=== PATIENT | male | born 1960 | race Two or more races ===

== ENCOUNTER 2018-05-20 09:54 | Inpatient (IN) | payer SELFPAY ==
[~2018-05-20] VITALS: Ht 167.6 cm; Wt 78.7 kg
[2018-05-20] MEDS ORDERED: ONDANSETRON PF 4 MG/2 ML VIAL. ONE (10:36)
[2018-05-20] MEDS ORDERED: fentaNYL PF VIAL 100 MCG/2 ML VIAL ONE (10:36)
[2018-05-20 10:38] LABS: BASO % 0 % (0-3); EOS % 0 % (0-3); HEMOGLOBIN 14.7 g/dL (13.0-17.5); LYMPH % 15 % (24-48); MEAN CORPUSCULAR HEMOGLOBIN 30 pg (25-35); MEAN CORPUSCULAR HGB CONC 34 g/dL (31-37); MEAN CORPUSCULAR VOLUME 88 fL (79-100); MONO # 2.4 x10^3/uL (0.0-1.1); MONO % 12 % (0-9); NEUT # 14.2 x10^3uL (1.8-7.7); NEUT % 73 % (31-73); PLATELET COUNT 303 x10^3/uL (140-400); RED BLOOD COUNT 4.87 x10^6/uL (4.30-5.70); RED CELL DISTRIBUTION WIDTH 14.6 % (11.5-14.5); WHITE BLOOD COUNT 19.6 x10^3/uL (4.0-11.0)
[2018-05-20 10:45] LABS: CALCIUM 8.7 mg/dL (8.5-10.1); CREATININE 2.7 mg/dL (0.7-1.3); GFR 24.5; POTASSIUM 4.3 mmol/L (3.5-5.1)
[2018-05-20 10:51] LABS: ALBUMIN 2.6 g/dL (3.4-5.0); DIRECT BILIRUBIN 0.2 mg/dL (0.0-0.2); TOTAL BILIRUBIN 0.8 mg/dL (0.2-1.0); TOTAL PROTEIN 8.1 g/dL (6.4-8.2)
--- NOTE | 2018-05-20 11:48 | PHYS DOC ---
Past Medical History Past Medical History: CAD, Diabetes-Type II, Hypertension Past Surgical History: Other Additional Past Surgical Histo: open heart surgery Alcohol Use: None Drug Use: None Adult General Chief Complaint Chief Complaint: DIZZY/LIGHT HEADED HPI HPI Patient is a 58 year old male who presents with c/o headache with nausea and vomiting that started yesterday. Patient rates headache at an 8/10. He describes pain as throbbing.he indicates that he has t been able to keep any food or fluids down. Review of Systems Review of Systems Constitutional: Denies fever or chills [] Eyes: Denies change in visual acuity, redness, or eye pain [] Respiratory: Denies cough or shortness of breath [] Cardiovascular: denies chest pain] GI: c/o nausea and vomiting [] Neurologic: c/o headache [] All other systems were reviewed and found to be within normal limits, except as documented in this note. Current Medications Current Medications Current Medications Medications (Trade) Dose Ordered Sig/Biju Start Time Stop Time Status Last Admin Dose Admin Fentanyl Citrate (Fentanyl 2ml Vial) 100 mcg STK-MED ONCE 05/20/18 10:36 05/20/18 10:37 DC Ondansetron HCl (Zofran) 4 mg STK-MED ONCE 05/20/18 10:36 05/20/18 10:37 DC Allergies Allergies Allergies Coded Allergies Type Severity Reaction Last Updated Verified No Known Drug Allergies 05/20/18 No Physical Exam Physical Exam Constitutional: Well developed, well nourished, no acute distress, non-toxic appearance. [] HENT: Normocephalic, atraumatic, bilateral external ears normal, oropharynx moist, no oral exudates, nose normal. [] Eyes: PERRLA, EOMI, conjunctiva normal, no discharge. [] Neck: Normal range of motion, no tenderness, supple, no stridor. [] Cardiovascular:Heart rate regular rhythm, no murmur [] Lungs & Thorax: Bilateral breath sounds clear to auscultation [] Abdomen: Bowel sounds normal, soft, no tenderness, no masses, no pulsatile masses. [] Skin: Warm, dry, no erythema, no rash. [] Back: No tenderness, no CVA tenderness. [] Extremities: No tenderness, no cyanosis, no clubbing, ROM intact, no edema. [] Neurologic: Alert and oriented X 3, normal motor function, normal sensory function, no focal deficits noted. [] Psychologic: Affect normal, judgement normal, mood normal. [] Current Patient Data Vital Signs Vital Signs Date Time Temp Pulse Resp B/P (MAP) Pulse Ox O2 Delivery O2 Flow Rate FiO2 05/20/18 10:00 99.7 98 14 175/83 (113) 98 Room Air 99.7 Lab Values Laboratory Tests Test 05/20/18 10:16 White Blood Count 19.6 x10^3/uL (4.0-11.0) H Red Blood Count 4.87 x10^6/uL (4.30-5.70) Hemoglobin 14.7 g/dL (13.0-17.5) Hematocrit 43.0 % (39.0-53.0) Mean Corpuscular Volume 88 fL (79-100) Mean Corpuscular Hemoglobin 30 pg (25-35) Mean Corpuscular Hemoglobin Concent 34 g/dL (31-37) Red Cell Distribution Width 14.6 % (11.5-14.5) H Platelet Count 303 x10^3/uL (140-400) Neutrophils (%) (Auto) 73 % (31-73) Lymphocytes (%) (Auto) 15 % (24-48) L Monocytes (%) (Auto) 12 % (0-9) H Eosinophils (%) (Auto) 0 % (0-3) Basophils (%) (Auto) 0 % (0-3) Neutrophils # (Auto) 14.2 x10^3uL (1.8-7.7) H Lymphocytes # (Auto) 3.0 x10^3/uL (1.0-4.8) Monocytes # (Auto) 2.4 x10^3/uL (0.0-1.1) H Eosinophils # (Auto) 0.0 x10^3/uL (0.0-0.7) Basophils # (Auto) 0.0 x10^3/uL (0.0-0.2) Segmented Neutrophils % 82 % (35-66) H Lymphocytes % 11 % (24-48) L Monocytes % 7 % (0-10) Platelet Estimate Adequate (ADEQUATE) Anisocytosis Slight Sodium Level 136 mmol/L (136-145) Potassium Level 4.3 mmol/L (3.5-5.1) Chloride Level 102 mmol/L (98-107) Carbon Dioxide Level 23 mmol/L (21-32) Anion Gap 11 (6-14) Blood Urea Nitrogen 39 mg/dL (8-26) H Creatinine 2.7 mg/dL (0.7-1.3) H Estimated GFR (Cockcroft-Gault) 24.5 Glucose Level 130 mg/dL (70-99) H Calcium Level 8.7 mg/dL (8.5-10.1) Total Bilirubin 0.8 mg/dL (0.2-1.0) Direct Bilirubin 0.2 mg/dL (0.0-0.2) Aspartate Amino Transferase (AST) 24 U/L (15-37) Alanine Aminotransferase (ALT) 19 U/L (16-63) Alkaline Phosphatase 92 U/L (46-116) Total Protein 8.1 g/dL (6.4-8.2) Albumin 2.6 g/dL (3.4-5.0) L Laboratory Tests 05/20/18 10:16 Laboratory Tests 05/20/18 10:16 EKG EKG [] Radiology/Procedures Radiology/Procedures [] Impressions: CT head demonstrates no acute process. Course & Med Decision Making Course & Med Decision Making Pertinent Labs and Imaging studies reviewed. (See chart for details) [] Dragon Disclaimer Dragon Disclaimer This electronic medical record was generated, in whole or in part, using a voice recognition dictation system. Departure Departure Impression: Primary Impression: Acute renal failure Additional Impression: Migraine Disposition: 09 ADMITTED INPATIENT Admitting Physician: Roberth Luna Condition: IMPROVED Referrals: UNKNOWN PCP NAME (PCP) Problem Qualifiers Primary Impression: Acute renal failure Acute renal failure type: unspecified Qualified Codes: N17.9 - Acute kidney failure, unspecified Additional Impression: Migraine Migraine type: unspecified Status migrainosus presence: without status migrainosus Intractability: not intractable Qualified Codes: G43.909 - Migraine, unspecified, not intractable, without status migrainosus COLT GERARDO Jr. DO May 20, 2018 11:48
[2018-05-20 11:55] LABS: % LYMPHS 11 % (24-48); % MONOS 7 % (0-10); % SEGS 82 % (35-66); ANISOCYTOSIS SLIGHT; PLT ESTIMATE ADEQUATE (ADEQUATE)
[2018-05-20] MEDS ORDERED: SUMAtriptan SUCC 6 MG/0.5 ML VIAL. SQ ONE (13:00)
[2018-05-20] MEDS ORDERED: IV NORMAL SALINE 1000ML BAG 1,000 ML IV ONE (13:00)
[2018-05-20] MEDS ORDERED: fentaNYL PF VIAL 100 MCG/2 ML VIAL IV ONE (13:00)
[2018-05-20] MEDS ORDERED: MORPHINE SULFATE 4 MG/ML VIAL. IV PRN (13:00)
[2018-05-20] MEDS ORDERED: ONDANSETRON PF 4 MG/2 ML VIAL. IV PRN (13:00)
--- NOTE | 2018-05-20 13:02 | RAD ---
CT of the head without contrast, 05/20/2018: History: Headache, dizziness The ventricles are within normal limits in size. There is no shift of the midline structures. There is no evidence of acute intracranial hemorrhage or mass effect. There is calcific plaquing of the distal internal carotid and vertebral arteries. IMPRESSION: No acute intracranial abnormality is detected. PQRS Compliance Statement: One or more of the following individualized dose reduction techniques were utilized for this examination: 1. Automated exposure control 2. Adjustment of the mA and/or kV according to patient size 3. Use of iterative reconstruction technique
[2018-05-20] MEDS: IV NORMAL SALINE 1000ML BAG 1,000 ML IV SCH ×3 (14:30→23:10)
[2018-05-20 15:00] VITALS: BP 152/74
[2018-05-20] MEDS ORDERED: LISI-334 PO (15:15)
[2018-05-20] MEDS ORDERED: ASPI-630 PO (15:15)
[2018-05-20] MEDS: fentaNYL PF VIAL 100 MCG/2 ML VIAL IV PRN (17:52)
[2018-05-20] MEDS: METOPROLOL TART IMMED RELEASE 25 MG TABLET. PO SCH (18:30)
--- NOTE | 2018-05-20 18:32 | PDOC1 ---
History and Physical Date of Admission Date of Admission DATE: 05/20/18 TIME: 18:32 Identification/Chief Complaint Chief Complaint cc 58 year old male who presents with c/o headache with nausea and vomiting that started yesterday, rates headache at an 8/10. He describes pain as throbbing, ct head ok in ER also , DIZZY/LIGHT HEADED Past Medical History Past Medical History Past Medical History Past Medical History: CAD, Diabetes-Type II, Hypertension Past Surgical History: Other Additional Past Surgical Histo: open heart surgery Alcohol Use: None Drug Use: None family hx diabetes Pulmonary: No pertinent hx Family History Family History: High Cholestrol Family History: Parent Social History Smoke: No ALCOHOL: occassional Drugs: None Current Problem List Problem List Problems Medical Problems: (1) Acute renal failure Status: Acute (2) Migraine Status: Acute Current Medications Current Medications Current Medications Fentanyl Citrate (Fentanyl 2ml Vial) 100 mcg STK-MED ONCE .ROUTE ; Start at 10:36; Stop 05/20/18 at 10:37; Status DC Ondansetron HCl (Zofran) 4 mg STK-MED ONCE .ROUTE ; Start 05/20/18 at 10:36; Stop 05/20/18 at 10:37; Status DC Sodium Chloride 1,000 ml @ 1,000 mls/hr 1X ONCE IV Last administered on at 13:04; Start 05/20/18 at 13:00; Stop 05/20/18 at 13:59; Status DC Sumatriptan Succinate (Imitrex) 6 mg 1X ONCE SQ Last administered on at 13:10; Start 05/20/18 at 13:00; Stop 05/20/18 at 13:01; Status DC Fentanyl Citrate (Fentanyl 2ml Vial) 50 mcg 1X ONCE IV Last administered on at 13:08; Start 05/20/18 at 13:00; Stop 05/20/18 at 13:01; Status DC Ondansetron HCl (Zofran) 4 mg PRN Q8HRS PRN IV NAUSEA/VOMITING; Start 05/20/18 at 13:00; Stop 05/21/18 at 12:59 Morphine Sulfate (Morphine Sulfate) 4 mg PRN Q2HR PRN IV PAIN; Start 05/20/18 at 13:00; Stop 05/21/18 at 12:59 Sodium Chloride 1,000 ml @ 250 mls/hr Q4H IV Last administered on 05/20/18at 17 :53; Start 05/20/18 at 12:49; Stop 05/21/18 at 12:48 Fentanyl Citrate (Fentanyl 2ml Vial) 50 mcg PRN Q3HRS PRN IV PAIN Last administered on 05/20/18at 17:52; Start 05/20/18 at 17:45 Topiramate (Topamax) 25 mg BID PO ; Start 05/20/18 at 21:00 Metoprolol Tartrate (Lopressor) 25 mg DAILY PO Last administered on 05/20/18at 18:30; Start 05/20/18 at 19:00 Active Scripts Active Reported Aspirin 81 Mg Tab.chew 1 Tab PO DAILY Lisinopril 20 Mg Tablet 20 Mg PO DAILY Allergies Allergies: Coded Allergies: No Known Drug Allergies (Unverified , 05/20/18) ROS Review of System Review of Systems Review of Systems Constitutional: Denies fever or chills [] Eyes: Denies change in visual acuity, redness, or eye pain [] Respiratory: Denies cough or shortness of breath [] Cardiovascular: denies chest pain] GI: c/o nausea and vomiting [] Neurologic: c/o headache [] 14 PT systems were reviewed and found to be within normal limits, except as documented . Physical Exam Physical Exam Physical Exam Physical Exam Constitutional: Well developed, well nourished, no acute distress, non-toxic appearance. [] HENT: Normocephalic, atraumatic, bilateral external ears normal, oropharynx moist, no oral exudates, nose normal. [] Eyes: PERRLA, EOMI, conjunctiva normal, no discharge. [] Neck: Normal range of motion, no tenderness, supple, no stridor. [] Cardiovascular:Heart rate regular rhythm, no murmur [] Lungs & Thorax: Bilateral breath sounds clear to auscultation [] Abdomen: Bowel sounds normal, soft, no tenderness, no masses, no pulsatile masses. [] Skin: Warm, dry, no erythema, no rash. [] Back: No tenderness, no CVA tenderness. [] Extremities: No tenderness, no cyanosis, no clubbing, ROM intact, no edema. [] Neurologic: Alert and oriented X 3, normal motor function, normal sensory function, no focal deficits noted. [] Psychologic: Affect normal, judgement normal, mood normal. [] General: Alert, Oriented X3, Cooperative Breasts: Not examined Neuro: Normal speech, Cranial nerves 3-12 NL Psych/Mental Status: Mental status NL, Mood NL Vitals Vitals Vital Signs Date Time Temp Pulse Resp B/P (MAP) Pulse Ox O2 Delivery O2 Flow Rate FiO2 05/20/18 18:30 88 152/74 05/20/18 17:52 Room Air 05/20/18 15:00 98.4 17 98 98.4 Labs Labs Laboratory Tests Test 05/20/18 10:16 05/20/18 16:23 White Blood Count 19.6 x10^3/uL (4.0-11.0) Red Blood Count 4.87 x10^6/uL (4.30-5.70) Hemoglobin 14.7 g/dL (13.0-17.5) Hematocrit 43.0 % (39.0-53.0) Mean Corpuscular Volume 88 fL (79-100) Mean Corpuscular Hemoglobin 30 pg (25-35) Mean Corpuscular Hemoglobin Concent 34 g/dL (31-37) Red Cell Distribution Width 14.6 % (11.5-14.5) Platelet Count 303 x10^3/uL (140-400) Neutrophils (%) (Auto) 73 % (31-73) Lymphocytes (%) (Auto) 15 % (24-48) Monocytes (%) (Auto) 12 % (0-9) Eosinophils (%) (Auto) 0 % (0-3) Basophils (%) (Auto) 0 % (0-3) Neutrophils # (Auto) 14.2 x10^3uL (1.8-7.7) Lymphocytes # (Auto) 3.0 x10^3/uL (1.0-4.8) Monocytes # (Auto) 2.4 x10^3/uL (0.0-1.1) Eosinophils # (Auto) 0.0 x10^3/uL (0.0-0.7) Basophils # (Auto) 0.0 x10^3/uL (0.0-0.2) Segmented Neutrophils % 82 % (35-66) Lymphocytes % 11 % (24-48) Monocytes % 7 % (0-10) Platelet Estimate Adequate (ADEQUATE) Anisocytosis Slight Sodium Level 136 mmol/L (136-145) Potassium Level 4.3 mmol/L (3.5-5.1) Chloride Level 102 mmol/L (98-107) Carbon Dioxide Level 23 mmol/L (21-32) Anion Gap 11 (6-14) Blood Urea Nitrogen 39 mg/dL (8-26) Creatinine 2.7 mg/dL (0.7-1.3) Estimated GFR (Cockcroft-Gault) 24.5 Glucose Level 130 mg/dL (70-99) Calcium Level 8.7 mg/dL (8.5-10.1) Total Bilirubin 0.8 mg/dL (0.2-1.0) Direct Bilirubin 0.2 mg/dL (0.0-0.2) Aspartate Amino Transf (AST/SGOT) 24 U/L (15-37) Alanine Aminotransferase (ALT/SGPT) 19 U/L (16-63) Alkaline Phosphatase 92 U/L (46-116) Total Protein 8.1 g/dL (6.4-8.2) Albumin 2.6 g/dL (3.4-5.0) Glucose (Fingerstick) 117 mg/dL (70-99) Laboratory Tests Test 05/20/18 10:16 05/20/18 16:23 White Blood Count 19.6 x10^3/uL (4.0-11.0) Red Blood Count 4.87 x10^6/uL (4.30-5.70) Hemoglobin 14.7 g/dL (13.0-17.5) Hematocrit 43.0 % (39.0-53.0) Mean Corpuscular Volume 88 fL (79-100) Mean Corpuscular Hemoglobin 30 pg (25-35) Mean Corpuscular Hemoglobin Concent 34 g/dL (31-37) Red Cell Distribution Width 14.6 % (11.5-14.5) Platelet Count 303 x10^3/uL (140-400) Neutrophils (%) (Auto) 73 % (31-73) Lymphocytes (%) (Auto) 15 % (24-48) Monocytes (%) (Auto) 12 % (0-9) Eosinophils (%) (Auto) 0 % (0-3) Basophils (%) (Auto) 0 % (0-3) Neutrophils # (Auto) 14.2 x10^3uL (1.8-7.7) Lymphocytes # (Auto) 3.0 x10^3/uL (1.0-4.8) Monocytes # (Auto) 2.4 x10^3/uL (0.0-1.1) Eosinophils # (Auto) 0.0 x10^3/uL (0.0-0.7) Basophils # (Auto) 0.0 x10^3/uL (0.0-0.2) Segmented Neutrophils % 82 % (35-66) Lymphocytes % 11 % (24-48) Monocytes % 7 % (0-10) Platelet Estimate Adequate (ADEQUATE) Anisocytosis Slight Sodium Level 136 mmol/L (136-145) Potassium Level 4.3 mmol/L (3.5-5.1) Chloride Level 102 mmol/L (98-107) Carbon Dioxide Level 23 mmol/L (21-32) Anion Gap 11 (6-14) Blood Urea Nitrogen 39 mg/dL (8-26) Creatinine 2.7 mg/dL (0.7-1.3) Estimated GFR (Cockcroft-Gault) 24.5 Glucose Level 130 mg/dL (70-99) Calcium Level 8.7 mg/dL (8.5-10.1) Total Bilirubin 0.8 mg/dL (0.2-1.0) Direct Bilirubin 0.2 mg/dL (0.0-0.2) Aspartate Amino Transf (AST/SGOT) 24 U/L (15-37) Alanine Aminotransferase (ALT/SGPT) 19 U/L (16-63) Alkaline Phosphatase 92 U/L (46-116) Total Protein 8.1 g/dL (6.4-8.2) Albumin 2.6 g/dL (3.4-5.0) Glucose (Fingerstick) 117 mg/dL (70-99) Images Images PROCEDURE: CT HEAD WO CONTRAST CT of the head without contrast, 05/20/2018: History: Headache, dizziness The ventricles are within normal limits in size. There is no shift of the midline structures. There is no evidence of acute intracranial hemorrhage or mass effect. There is calcific plaquing of the distal internal carotid and vertebral arteries. IMPRESSION: No acute intracranial abnormality is detected. VTE Prophylaxis Ordered VTE Prophylaxis Devices: Yes VTE Pharmacological Prophylaxi: Yes Assessment/Plan Assessment/Plan Impression: Acute renal failure: Migraine, intractable pain Intractable nausea and vomiting acute intravascular volume depletion PLAN IV FLUID SUPPORT RENAL CONSULT PAIN CONTROL, iv iv zofran prn q 4 hrs lovenox 30 mg sq q 4 hrs frequent labs DAWSON CISNEROS MD May 20, 2018 18:32
[2018-05-20 19:00] VITALS: BP 165/73
[2018-05-20 19:03] LABS: PROTHROMBIN TIME PATIENT 13.8 SEC (11.7-14.0)
[2018-05-20] MEDS: ASPIRIN CHEWABLE 81 MG TABLET. PO SCH (19:33)
[2018-05-20] MEDS: TOPIRAMATE 25 MG TABLET. PO SCH (19:33)
[2018-05-20] MEDS: ACETAMINOPHEN 325 MG TABLET. PO PRN (19:33)
[2018-05-20 20:11] LABS: BILIRUBIN,URINE NEGATIVE (NEG); CLARITY,URINE CLEAR; COLOR,URINE YELLOW; NITRITE,URINE NEGATIVE (NEG); PH,URINE 6.5; PROTEIN,URINE >=300 mg/dL (NEG-TRACE)
[2018-05-20 20:17] LABS: BARBITURATES NEG (NEG); BENZODIAZEPINES NEG (NEG); CANNABINOIDS NEG (NEG); COCAINE NEG (NEG); METHADONE NEG (NEG); OPIATES NEG (NEG); PHENCYCLIDINE NEG (NEG)
[2018-05-20 20:20] LABS: AMPHETAMINE/METHAMPHETAMINE NEG (NEG)
--- NOTE | 2018-05-20 20:22 | PDOC2 ---
NEUROLOGY CONSULT Date of Admission Date of Admission DATE: 05/20/18 TIME: 20:08 Reason for Consult Reason for Consult: IMPRESSION: Fever. Chills. Headaches. Dizziness. Leukocytosis. Renal failure or AGNIESZKA. Nausea. Vomiting. DM. CAD. HTN. Meningitis? RECOMMENDATIONS/PLAN: Please consult ID, MARY. Brain MRI w/o contrast, no contrast due to renal failure. Keep good hydration. LP after MRI is considered. Lab: see orders, including blood cultures. CXR PA/LAT. Treat medical diseases. HISTORY OF THE PRESENT ILLNESS: 58-y-old [place] origin male patient with Hx of CAD and HTN developed symptoms of fever, chills, headaches, nausea, vomiting for 2 days before coming to the ER of [facility]. His HCT was unremarkable. His WBC is 19.6. Past Medical History CAD, Diabetes-Type II, Hypertension Past Surgical History: "Open heart surgery" Family History HLD ALLERGY: Unknown MEDICATIONS: Refer to MAR SOCIAL HISTORY: Lives at home. Denies smoking, drinking, and illicit drug use. REVIEW OF SYSTEMS: Constitutional: Over weight. Head: No traumatic brain or head injury. Skin: No edema, or rash. Ear: No infection. Eyes: No vision loss or color blindness. Nose: No bleeding or purulent discharges. Hearing: No hearing decrease. Neck: No injury. Cardiac: HTN. Pulmonary: No COPD. GI: No GI ulcer, GI bleeding. Urinary/genital: No dysuria, incontinence, urinary retention. Endocrinologic: Diabetes Mellitus. Skeletomuscular: No muscular atrophy, deformity. Neurological: see HP. Psychiatric: Denies drug use/abuse. Otherwise, not [id number] review of systems. PHYSICAL EXAMINATION: General appearance is in acute distress. HEENT: Normocephalic and nontraumatic. Eyes, nose, ears, and throat are unremarkable. Neck is supple. No lymphadenopathy. No bruits are heard over the carotid artery. No crepitus. Cardiovascular: S1, S2, regular rate and rhythm. Pulmonary: Clear to auscultation bilaterally. Abdomen: Bowel sounds are positive. Abdomen is soft, nontender, and nondistended. Extremities: No rash, lesions, or edema. No restriction of range of motion NEUROLOGICAL EXAMINATION: Drowsiness. Oriented to time, place and person. PERRL. EOMI. CN: no focal findings. Muscle tone: within normal. Muscle strength: 5 DTR: 2 Plantar reflex: Flexor response bilaterally Gait: not examined in bed. Sensory exam: no abnormal findings. No cerebellar signs elicited. F-T-N test accurate. Current Medications Current Medications Current Medications Fentanyl Citrate (Fentanyl 2ml Vial) 100 mcg STK-MED ONCE .ROUTE ; Start at 10:36; Stop 05/20/18 at 10:37; Status DC Ondansetron HCl (Zofran) 4 mg STK-MED ONCE .ROUTE ; Start 05/20/18 at 10:36; Stop 05/20/18 at 10:37; Status DC Sodium Chloride 1,000 ml @ 1,000 mls/hr 1X ONCE IV Last administered on at 13:04; Start 05/20/18 at 13:00; Stop 05/20/18 at 13:59; Status DC Sumatriptan Succinate (Imitrex) 6 mg 1X ONCE SQ Last administered on at 13:10; Start 05/20/18 at 13:00; Stop 05/20/18 at 13:01; Status DC Fentanyl Citrate (Fentanyl 2ml Vial) 50 mcg 1X ONCE IV Last administered on at 13:08; Start 05/20/18 at 13:00; Stop 05/20/18 at 13:01; Status DC Ondansetron HCl (Zofran) 4 mg PRN Q8HRS PRN IV NAUSEA/VOMITING; Start 05/20/18 at 13:00; Stop 05/21/18 at 12:59 Morphine Sulfate (Morphine Sulfate) 4 mg PRN Q2HR PRN IV PAIN; Start 05/20/18 at 13:00; Stop 05/21/18 at 12:59 Sodium Chloride 1,000 ml @ 250 mls/hr Q4H IV Last administered on 05/20/18at 17 :53; Start 05/20/18 at 12:49; Stop 05/21/18 at 12:48 Fentanyl Citrate (Fentanyl 2ml Vial) 50 mcg PRN Q3HRS PRN IV PAIN Last administered on 05/20/18at 17:52; Start 05/20/18 at 17:45 Topiramate (Topamax) 25 mg BID PO Last administered on 05/20/18at 19:33; Start 05/20/18 at 21:00 Metoprolol Tartrate (Lopressor) 25 mg DAILY PO Last administered on 05/20/18at 18:30; Start 05/20/18 at 19:00 Aspirin (Children'S Aspirin) 81 mg DAILY PO Last administered on 05/20/18at 19: 33; Start 05/20/18 at 19:00 Acetaminophen (Tylenol) 650 mg PRN Q6HRS PRN PO MILD PAIN / TEMP Last administered on 05/20/18at 19:33; Start 05/20/18 at 19:30 Active Scripts Active Reported Aspirin 81 Mg Tab.chew 1 Tab PO DAILY Lisinopril 20 Mg Tablet 20 Mg PO DAILY Allergies Allergies: Allergies Coded Allergies Type Severity Reaction Last Updated Verified No Known Drug Allergies 05/20/18 No ROS Review of System The patient denies any associated fevers, chills, headache, ear pain, rhinorrhea , sore throat, stiff neck, productive cough, chest pain, shortness of breath, back or flank pain, abdominal pain, nausea, vomiting, diarrhea, constipation, dysuria, rash, numbness, weakness, tingling, incontinence, difficulty ambulating, or diaphoresis. Physical Exam Physical Exam General: Well developed, well nourished, no acute distress, well appearing HEENT: Pupils equally round and reactive to light, EOMI, no discharge, normal conjunctiva Neck: Supple, no nuchal rigidity, no JVD, trachea midline, no tenderness Cardiac: RRR, no murmurs, no gallops, no rubs Chest/Lungs: CTAB, no wheeze, no rhonchi, no crackles Abdomen: soft, non-distended, no guarding, no peritoneal signs, non-tender Back: No tenderness Extremities: no edema, pulses intact, non-tender,capillary refill <3 sec bilateral upper and lower extremities, Neuro: Alert and oriented x 4, no focal deficits, normal speech Vitals Vitals: Vital Signs Date Time Temp Pulse Resp B/P (MAP) Pulse Ox O2 Delivery O2 Flow Rate FiO2 05/20/18 19:00 101.5 84 20 165/73 (103) 99 Room Air 101.5 Labs Labs Laboratory Tests Test 05/20/18 10:16 05/20/18 16:23 05/20/18 18:45 White Blood Count 19.6 x10^3/uL (4.0-11.0) Red Blood Count 4.87 x10^6/uL (4.30-5.70) Hemoglobin 14.7 g/dL (13.0-17.5) Hematocrit 43.0 % (39.0-53.0) Mean Corpuscular Volume 88 fL (79-100) Mean Corpuscular Hemoglobin 30 pg (25-35) Mean Corpuscular Hemoglobin Concent 34 g/dL (31-37) Red Cell Distribution Width 14.6 % (11.5-14.5) Platelet Count 303 x10^3/uL (140-400) Neutrophils (%) (Auto) 73 % (31-73) Lymphocytes (%) (Auto) 15 % (24-48) Monocytes (%) (Auto) 12 % (0-9) Eosinophils (%) (Auto) 0 % (0-3) Basophils (%) (Auto) 0 % (0-3) Neutrophils # (Auto) 14.2 x10^3uL (1.8-7.7) Lymphocytes # (Auto) 3.0 x10^3/uL (1.0-4.8) Monocytes # (Auto) 2.4 x10^3/uL (0.0-1.1) Eosinophils # (Auto) 0.0 x10^3/uL (0.0-0.7) Basophils # (Auto) 0.0 x10^3/uL (0.0-0.2) Segmented Neutrophils % 82 % (35-66) Lymphocytes % 11 % (24-48) Monocytes % 7 % (0-10) Platelet Estimate Adequate (ADEQUATE) Anisocytosis Slight Sodium Level 136 mmol/L (136-145) Potassium Level 4.3 mmol/L (3.5-5.1) Chloride Level 102 mmol/L (98-107) Carbon Dioxide Level 23 mmol/L (21-32) Anion Gap 11 (6-14) Blood Urea Nitrogen 39 mg/dL (8-26) Creatinine 2.7 mg/dL (0.7-1.3) Estimated GFR (Cockcroft-Gault) 24.5 Glucose Level 130 mg/dL (70-99) Calcium Level 8.7 mg/dL (8.5-10.1) Total Bilirubin 0.8 mg/dL (0.2-1.0) Direct Bilirubin 0.2 mg/dL (0.0-0.2) Aspartate Amino Transf (AST/SGOT) 24 U/L (15-37) Alanine Aminotransferase (ALT/SGPT) 19 U/L (16-63) Alkaline Phosphatase 92 U/L (46-116) Total Protein 8.1 g/dL (6.4-8.2) Albumin 2.6 g/dL (3.4-5.0) Glucose (Fingerstick) 117 mg/dL (70-99) Prothrombin Time 13.8 SEC (11.7-14.0) Prothromb Time International Ratio 1.1 (0.8-1.1) Laboratory Tests Test 05/20/18 10:16 05/20/18 16:23 05/20/18 18:45 White Blood Count 19.6 x10^3/uL (4.0-11.0) Red Blood Count 4.87 x10^6/uL (4.30-5.70) Hemoglobin 14.7 g/dL (13.0-17.5) Hematocrit 43.0 % (39.0-53.0) Mean Corpuscular Volume 88 fL (79-100) Mean Corpuscular Hemoglobin 30 pg (25-35) Mean Corpuscular Hemoglobin Concent 34 g/dL (31-37) Red Cell Distribution Width 14.6 % (11.5-14.5) Platelet Count 303 x10^3/uL (140-400) Neutrophils (%) (Auto) 73 % (31-73) Lymphocytes (%) (Auto) 15 % (24-48) Monocytes (%) (Auto) 12 % (0-9) Eosinophils (%) (Auto) 0 % (0-3) Basophils (%) (Auto) 0 % (0-3) Neutrophils # (Auto) 14.2 x10^3uL (1.8-7.7) Lymphocytes # (Auto) 3.0 x10^3/uL (1.0-4.8) Monocytes # (Auto) 2.4 x10^3/uL (0.0-1.1) Eosinophils # (Auto) 0.0 x10^3/uL (0.0-0.7) Basophils # (Auto) 0.0 x10^3/uL (0.0-0.2) Segmented Neutrophils % 82 % (35-66) Lymphocytes % 11 % (24-48) Monocytes % 7 % (0-10) Platelet Estimate Adequate (ADEQUATE) Anisocytosis Slight Sodium Level 136 mmol/L (136-145) Potassium Level 4.3 mmol/L (3.5-5.1) Chloride Level 102 mmol/L (98-107) Carbon Dioxide Level 23 mmol/L (21-32) Anion Gap 11 (6-14) Blood Urea Nitrogen 39 mg/dL (8-26) Creatinine 2.7 mg/dL (0.7-1.3) Estimated GFR (Cockcroft-Gault) 24.5 Glucose Level 130 mg/dL (70-99) Calcium Level 8.7 mg/dL (8.5-10.1) Total Bilirubin 0.8 mg/dL (0.2-1.0) Direct Bilirubin 0.2 mg/dL (0.0-0.2) Aspartate Amino Transf (AST/SGOT) 24 U/L (15-37) Alanine Aminotransferase (ALT/SGPT) 19 U/L (16-63) Alkaline Phosphatase 92 U/L (46-116) Total Protein 8.1 g/dL (6.4-8.2) Albumin 2.6 g/dL (3.4-5.0) Glucose (Fingerstick) 117 mg/dL (70-99) Prothrombin Time 13.8 SEC (11.7-14.0) Prothromb Time International Ratio 1.1 (0.8-1.1) JOHANNA VALENTIN MD May 20, 2018 20:22
[2018-05-20 20:34] LABS: BACTERIA,URINE 0 /HPF (0-FEW); HYALINE CASTS, URINE FEW /HPF; SQUAMOUS EPITHELIAL CELL,UR FEW /LPF
[2018-05-20] MEDS ORDERED: CEFEPIME HCL 1 GM in IV DEXTROSE 5% 50 ML IV SCH (21:00)
[2018-05-20] MEDS: CEFEPIME HCL IV Push 1 GM VIAL. IVP SCH (21:44)
--- NOTE | 2018-05-20 23:01 | RAD ---
PROCEDURE: CHEST PA LATERAL CLINICAL INDICATION: FEVER, CHILLS X1 DAY COMPARISON: None FINDINGS: Status post CABG. No pneumothorax identified. Cardiac and mediastinal contours unremarkable. No pulmonary consolidation or acute airspace disease. No acute osseous abnormalities identified. IMPRESSION: No pulmonary consolidation or acute airspace disease. Electronically signed by: Elpidio Chow DO (05/20/2018 10:58 PM) [facility]
[2018-05-20 23:03] VITALS: BP 119/69
[2018-05-21] MEDS: ACETAMINOPHEN 325 MG TABLET. PO PRN ×2 (02:18→09:07)
[2018-05-21 03:06] VITALS: BP 152/73
[2018-05-21] MEDS: IV NORMAL SALINE 1000ML BAG 1,000 ML IV SCH ×4 (03:24→21:20)
[2018-05-21 07:00] VITALS: BP 147/64
--- NOTE | 2018-05-21 09:06 | RAD ---
MRI Brain without contrast History:NAUSEA, DIZZINESS, HEADACHES Technique: Multiplanar, multisequential noncontrast MR imaging was performed of the brain. Contrast: None Comparison: None Findings: There is some motion degradation. There is no evidence of recent infarct or cytotoxic edema. The ventricles, sulci, and cisterns are within normal limits in size and configuration. There is no significant midline shift, intraaxial mass effect, or focal abnormal extra-axial fluid collection. Allowing for motion, there is no significant signal abnormality including hemosiderin deposition of the brain parenchyma. There is preservation of the major intracranial flow-voids at the skull base. The mastoid air cells are aerated. The cerebellar tonsils are normal in location. There is no significant abnormality of the pineal gland or pituitary gland. There is qxeo-li-wwwwzliv ethmoid air cell and mild bilateral maxillary sinus mucosal thickening. Frontal sinus is not significantly pneumatized. There is preserved marrow signal of the clivus. Impression: 1. Allowing for motion degradation, no significant intracranial abnormality is identified. 2. There is paranasal sinus mucosal thickening as stated. Electronically signed by: Ernesto Paul MD (05/21/2018 9:02 AM) [email or web address]
[2018-05-21] MEDS: ASPIRIN CHEWABLE 81 MG TABLET. PO SCH (09:07)
[2018-05-21] MEDS: TOPIRAMATE 25 MG TABLET. PO SCH ×2 (09:07→21:21)
[2018-05-21] MEDS: METOPROLOL TART IMMED RELEASE 25 MG TABLET. PO SCH (09:07)
[2018-05-21] MEDS: CEFEPIME HCL IV Push 1 GM VIAL. IVP SCH (09:09)
[2018-05-21] MEDS: oxyCODONE/APAP 5/325 1 TAB TABLET PO PRN ×2 (09:36→18:40)
[2018-05-21] MEDS ORDERED: ACETAMINOPHEN 500 MG TABLET PO ONE (10:00)
--- NOTE | 2018-05-21 10:07 | PDOC ---
Infectious Disease Note Vital Sign Vital Signs Vital Signs Date Time Temp Pulse Resp B/P (MAP) Pulse Ox O2 Delivery O2 Flow Rate FiO2 05/21/18 09:36 Room Air 05/21/18 09:07 77 147/64 05/21/18 07:00 102.2 18 99 102.2 Labs Lab Laboratory Tests Test 05/20/18 10:16 05/20/18 16:23 05/20/18 18:45 05/20/18 19:47 White Blood Count 19.6 x10^3/uL (4.0-11.0) Red Blood Count 4.87 x10^6/uL (4.30-5.70) Hemoglobin 14.7 g/dL (13.0-17.5) Hematocrit 43.0 % (39.0-53.0) Mean Corpuscular Volume 88 fL (79-100) Mean Corpuscular Hemoglobin 30 pg (25-35) Mean Corpuscular Hemoglobin Concent 34 g/dL (31-37) Red Cell Distribution Width 14.6 % (11.5-14.5) Platelet Count 303 x10^3/uL (140-400) Neutrophils (%) (Auto) 73 % (31-73) Lymphocytes (%) (Auto) 15 % (24-48) Monocytes (%) (Auto) 12 % (0-9) Eosinophils (%) (Auto) 0 % (0-3) Basophils (%) (Auto) 0 % (0-3) Neutrophils # (Auto) 14.2 x10^3uL (1.8-7.7) Lymphocytes # (Auto) 3.0 x10^3/uL (1.0-4.8) Monocytes # (Auto) 2.4 x10^3/uL (0.0-1.1) Eosinophils # (Auto) 0.0 x10^3/uL (0.0-0.7) Basophils # (Auto) 0.0 x10^3/uL (0.0-0.2) Segmented Neutrophils % 82 % (35-66) Lymphocytes % 11 % (24-48) Monocytes % 7 % (0-10) Platelet Estimate Adequate (ADEQUATE) Anisocytosis Slight Sodium Level 136 mmol/L (136-145) Potassium Level 4.3 mmol/L (3.5-5.1) Chloride Level 102 mmol/L (98-107) Carbon Dioxide Level 23 mmol/L (21-32) Anion Gap 11 (6-14) Blood Urea Nitrogen 39 mg/dL (8-26) Creatinine 2.7 mg/dL (0.7-1.3) Estimated GFR (Cockcroft-Gault) 24.5 Glucose Level 130 mg/dL (70-99) Calcium Level 8.7 mg/dL (8.5-10.1) Total Bilirubin 0.8 mg/dL (0.2-1.0) Direct Bilirubin 0.2 mg/dL (0.0-0.2) Aspartate Amino Transf (AST/SGOT) 24 U/L (15-37) Alanine Aminotransferase (ALT/SGPT) 19 U/L (16-63) Alkaline Phosphatase 92 U/L (46-116) Total Protein 8.1 g/dL (6.4-8.2) Albumin 2.6 g/dL (3.4-5.0) Glucose (Fingerstick) 117 mg/dL (70-99) Erythrocyte Sedimentation Rate 57 (0-15) Prothrombin Time 13.8 SEC (11.7-14.0) Prothromb Time International Ratio 1.1 (0.8-1.1) Urine Collection Type Unknown Urine Color Yellow Urine Clarity Clear Urine pH 6.5 Urine Specific [place] 1.020 Urine Protein >=300 mg/dL (NEG-TRACE) Urine Glucose (UA) 250 mg/dL (NEG) Urine Ketones (Stick) Negative mg/dL (NEG) Urine Blood Small (NEG) Urine Nitrite Negative (NEG) Urine Bilirubin Negative (NEG) Urine Urobilinogen Dipstick 1.0 mg/dL (0.2 mg/dL) Urine Leukocyte Esterase Negative (NEG) Urine RBC 3-5 /HPF (0-2) Urine WBC 1-4 /HPF (0-4) Urine Squamous Epithelial Cells Few /LPF Urine Bacteria 0 /HPF (0-FEW) Urine Hyaline Casts Few /HPF Urine Mucus Slight /LPF Urine Opiates Screen Neg (NEG) Urine Methadone Screen Neg (NEG) Urine Barbiturates Neg (NEG) Urine Phencyclidine Screen Neg (NEG) Urine Amphetamine/Methamphetamine Neg (NEG) Urine Benzodiazepines Screen Neg (NEG) Urine Cocaine Screen Neg (NEG) Urine Cannabinoids Screen Neg (NEG) Urine Ethyl Alcohol Neg (NEG) Test 05/20/18 20:19 05/20/18 21:40 05/21/18 07:13 Glucose (Fingerstick) 120 mg/dL (70-99) 71 mg/dL (70-99) Lactic Acid Level 0.6 mmol/L (0.4-2.0) Objective Assessment Fever Headache Diarrhea DM Plan Plan of Care LP cont cefepime supportive care check culture JIGAR PUCKETT MD May 21, 2018 10:07
[2018-05-21 11:00] VITALS: BP 148/64
[2018-05-21 11:17] LABS: BASO # 0.1 x10^3/uL (0.0-0.2); BASO % 0 % (0-3); EOS % 0 % (0-3); HEMOGLOBIN 11.3 g/dL (13.0-17.5); LYMPH # 2.1 x10^3/uL (1.0-4.8); LYMPH % 10 % (24-48); MEAN CORPUSCULAR HEMOGLOBIN 30 pg (25-35); MEAN CORPUSCULAR HGB CONC 33 g/dL (31-37); MEAN CORPUSCULAR VOLUME 89 fL (79-100); MONO # 2.6 x10^3/uL (0.0-1.1); MONO % 12 % (0-9); NEUT # 16.8 x10^3uL (1.8-7.7); NEUT % 78 % (31-73); PLATELET COUNT 228 x10^3/uL (140-400); RED BLOOD COUNT 3.83 x10^6/uL (4.30-5.70); RED CELL DISTRIBUTION WIDTH 14.5 % (11.5-14.5); WHITE BLOOD COUNT 21.6 x10^3/uL (4.0-11.0)
[2018-05-21 11:34] LABS: ALBUMIN 1.8 g/dL (3.4-5.0); ALBUMIN/GLOBULIN RATIO 0.5 (1.0-1.7); CALCIUM 6.6 mg/dL (8.5-10.1); CREATININE 2.3 mg/dL (0.7-1.3); GFR 29.5; POTASSIUM 4.6 mmol/L (3.5-5.1); TOTAL BILIRUBIN 0.6 mg/dL (0.2-1.0); TOTAL PROTEIN 5.8 g/dL (6.4-8.2)
[2018-05-21] MEDS ORDERED: LIDOCAINE WITH 8.4% SOD BICARB 3 ML DISP.SYRIN. INJ ONE (12:15)
--- NOTE | 2018-05-21 13:25 | PDOC ---
Provider Note Provider Note A fluoro guided LP was performed utilizing a 20 g spinal needle without difficulty. 11 cc of clear CSF was removed and sent to the lab. The patient tolerated the procedure well and left the radiology department in stable condition. KACEY PARTIDA MD May 21, 2018 13:25
--- NOTE | 2018-05-21 13:42 | RAD ---
Fluoroscopically guided lumbar puncture, 05/21/2018: History: Headache, fever Under local anesthesia, aseptic conditions and fluoroscopic guidance a lumbar puncture was performed at the L2-3 level utilizing a 20-gauge spinal needle. Good clear CSF flow was obtained. A total of 11 cc of CSF was removed and sent to the lab for appropriate studies. The spinal needle was then removed and hemostasis obtained. 0.6 minutes of fluoroscopy time was utilized. One fluoroscopic spot image was recorded. The patient tolerated the procedure well and was returned to the floor in stable condition.
[2018-05-21 14:31] LABS: CSF PROTEIN 61.7 mg/dL (15.0-45.0)
[2018-05-21 14:46] LABS: CSF CLARITY CLEAR; CSF COLOR COLORLESS; CSF MON % 62 %; CSF PMN % 38 %; CSF RBC COUNT 2
[2018-05-21 14:47] LABS: CSF WBC COUNT 157
[2018-05-21 15:00] VITALS: BP 140/77
--- NOTE | 2018-05-21 15:28 | PDOC2 ---
CONSULT Date of Consult Date of Consult DATE: 05/21/18 TIME: 15:05 Reason for Consult Reason for Consult: Renal failure Identification/Chief Complaint Chief Complaint N/V Source Source: Chart review, Patient History of Present Illness Reason for Visit: Patient is a 58 year old male who presents with c/o headache with nausea and vomiting that started yesterday. Patient rates headache at an 8/10. He describes pain as throbbing.he indicates that he has t been able to keep any food or fluids down. He doesnt have a PCP, reports Has HTN and DM- on insulin, last seen his Provider 1-2 years back. Denies any Renal issues. No urinary complaints. Denies use of NSAID, was taking Excedrin for pain Denies any recent travel . Denies LE edema Past Medical History Pulmonary: No pertinent hx Family History Family History: High Cholestrol Social History Social History: Parent No ALCOHOL: occassional Drugs: None Current Problem List Problem List Problems Medical Problems: (1) Acute renal failure Status: Acute (2) Migraine Status: Acute Current Medications Current Medications Current Medications Fentanyl Citrate (Fentanyl 2ml Vial) 100 mcg STK-MED ONCE .ROUTE ; Start at 10:36; Stop 05/20/18 at 10:37; Status DC Ondansetron HCl (Zofran) 4 mg STK-MED ONCE .ROUTE ; Start 05/20/18 at 10:36; Stop 05/20/18 at 10:37; Status DC Sodium Chloride 1,000 ml @ 1,000 mls/hr 1X ONCE IV Last administered on at 13:04; Start 05/20/18 at 13:00; Stop 05/20/18 at 13:59; Status DC Sumatriptan Succinate (Imitrex) 6 mg 1X ONCE SQ Last administered on at 13:10; Start 05/20/18 at 13:00; Stop 05/20/18 at 13:01; Status DC Fentanyl Citrate (Fentanyl 2ml Vial) 50 mcg 1X ONCE IV Last administered on at 13:08; Start 05/20/18 at 13:00; Stop 05/20/18 at 13:01; Status DC Ondansetron HCl (Zofran) 4 mg PRN Q8HRS PRN IV NAUSEA/VOMITING; Start 05/20/18 at 13:00; Stop 05/21/18 at 12:59; Status DC Morphine Sulfate (Morphine Sulfate) 4 mg PRN Q2HR PRN IV PAIN; Start 05/20/18 at 13:00; Stop 05/21/18 at 12:59; Status DC Sodium Chloride 1,000 ml @ 250 mls/hr Q4H IV Last administered on 05/21/18at 09 :13; Start 05/20/18 at 12:49; Stop 05/21/18 at 12:48; Status DC Fentanyl Citrate (Fentanyl 2ml Vial) 50 mcg PRN Q3HRS PRN IV PAIN Last administered on 05/20/18at 17:52; Start 05/20/18 at 17:45 Topiramate (Topamax) 25 mg BID PO Last administered on 05/21/18at 09:07; Start 05/20/18 at 21:00 Metoprolol Tartrate (Lopressor) 25 mg DAILY PO Last administered on 05/21/18at 09:07; Start 05/20/18 at 19:00 Aspirin (Children'S Aspirin) 81 mg DAILY PO Last administered on 05/21/18at 09: 07; Start 05/20/18 at 19:00 Acetaminophen (Tylenol) 650 mg PRN Q6HRS PRN PO MILD PAIN / TEMP Last administered on 05/21/18at 09:07; Start 05/20/18 at 19:30 Cefepime HCl 1 gm/ Dextrose 50 ml @ 100 mls/hr Q12HR IV ; Start 05/20/18 at 21: 00; Status UNV Cefepime HCl (Maxipime) 1 gm Q12HR IVP Last administered on 05/21/18at 09:09; Start 05/20/18 at 21:00 Acetaminophen (Tylenol) 1,000 mg 1X ONCE PO Last administered on 05/21/18at 11: 10; Start 05/21/18 at 10:00; Stop 05/21/18 at 10:01; Status DC Oxycodone/ Acetaminophen (Percocet 5/325) 1 tab PRN Q6HRS PRN PO MODERATE - SEVERE PAIN Last administered on 05/21/18at 09:36; Start 05/21/18 at 09:30 Lidocaine/Sodium Bicarbonate (Buffered Lidocaine 1%) 6 ml 1X ONCE INJ ; Start 05/21/18 at 12:15; Stop 05/21/18 at 12:16; Status DC Lactobacillus Rhamnosus (Culturelle) 1 cap BID PO ; Start 05/21/18 at 21:00 Vancomycin HCl (Vanco Per Pharmacy) 1 each PRN DAILY PRN MC SEE COMMENTS; Start 05/21/18 at 15:00 Vancomycin HCl 2 gm/Sodium Chloride 500 ml @ 250 mls/hr 1X ONCE IV ; Start at 15:30; Stop 05/21/18 at 17:29 Active Scripts Active Reported Aspirin 81 Mg Tab.chew 1 Tab PO DAILY Lisinopril 20 Mg Tablet 20 Mg PO DAILY Allergies Allergies: Coded Allergies: No Known Drug Allergies (Unverified , 05/20/18) ROS Review of System As per HPI Physical Exam Physical Exam GEN: NAD HEEN: OM dryish NECK: No JVD, CVS: RRR, HALEY + RESP: CTA, Non labored GI: Non Tender, Non Distended : No CVA tenderness, no Suprapubic Tenderness Skin no rash, scar Lt LE s/p vein harvesting Neuro- No gross deficit Vital Signs Vital Signs Date Time Temp Pulse Resp B/P (MAP) Pulse Ox O2 Delivery O2 Flow Rate FiO2 05/21/18 11:00 98.7 70 16 148/64 (92) 98 Room Air 98.7 Assessment & Plan AGNIESZKA- ? ckd has DM, HTN s/p CABG Clinically appears euvolemic IVF if NPO Check Ur Pr/Cr, Renal US Mildly low Na, Bicarb mildly low Monitor. Headache - neurology Following HTN- BP fair controlled DM- As per primary CAD CABG 6yrs back Discussed with Pt at bedside , has family as well- doesnt understand much latvian Labs Labs Laboratory Tests Test 05/20/18 10:16 05/20/18 16:23 05/20/18 18:45 05/20/18 19:47 White Blood Count 19.6 x10^3/uL (4.0-11.0) Red Blood Count 4.87 x10^6/uL (4.30-5.70) Hemoglobin 14.7 g/dL (13.0-17.5) Hematocrit 43.0 % (39.0-53.0) Mean Corpuscular Volume 88 fL (79-100) Mean Corpuscular Hemoglobin 30 pg (25-35) Mean Corpuscular Hemoglobin Concent 34 g/dL (31-37) Red Cell Distribution Width 14.6 % (11.5-14.5) Platelet Count 303 x10^3/uL (140-400) Neutrophils (%) (Auto) 73 % (31-73) Lymphocytes (%) (Auto) 15 % (24-48) Monocytes (%) (Auto) 12 % (0-9) Eosinophils (%) (Auto) 0 % (0-3) Basophils (%) (Auto) 0 % (0-3) Neutrophils # (Auto) 14.2 x10^3uL (1.8-7.7) Lymphocytes # (Auto) 3.0 x10^3/uL (1.0-4.8) Monocytes # (Auto) 2.4 x10^3/uL (0.0-1.1) Eosinophils # (Auto) 0.0 x10^3/uL (0.0-0.7) Basophils # (Auto) 0.0 x10^3/uL (0.0-0.2) Segmented Neutrophils % 82 % (35-66) Lymphocytes % 11 % (24-48) Monocytes % 7 % (0-10) Platelet Estimate Adequate (ADEQUATE) Anisocytosis Slight Sodium Level 136 mmol/L (136-145) Potassium Level 4.3 mmol/L (3.5-5.1) Chloride Level 102 mmol/L (98-107) Carbon Dioxide Level 23 mmol/L (21-32) Anion Gap 11 (6-14) Blood Urea Nitrogen 39 mg/dL (8-26) Creatinine 2.7 mg/dL (0.7-1.3) Estimated GFR (Cockcroft-Gault) 24.5 Glucose Level 130 mg/dL (70-99) Calcium Level 8.7 mg/dL (8.5-10.1) Total Bilirubin 0.8 mg/dL (0.2-1.0) Direct Bilirubin 0.2 mg/dL (0.0-0.2) Aspartate Amino Transf (AST/SGOT) 24 U/L (15-37) Alanine Aminotransferase (ALT/SGPT) 19 U/L (16-63) Alkaline Phosphatase 92 U/L (46-116) Total Protein 8.1 g/dL (6.4-8.2) Albumin 2.6 g/dL (3.4-5.0) Glucose (Fingerstick) 117 mg/dL (70-99) Erythrocyte Sedimentation Rate 57 (0-15) Prothrombin Time 13.8 SEC (11.7-14.0) Prothromb Time International Ratio 1.1 (0.8-1.1) C-Reactive Protein High Sensitivity 11.08 mg/L (0.00-3.00) Urine Collection Type Unknown Urine Color Yellow Urine Clarity Clear Urine pH 6.5 Urine Specific [place] 1.020 Urine Protein >=300 mg/dL (NEG-TRACE) Urine Glucose (UA) 250 mg/dL (NEG) Urine Ketones (Stick) Negative mg/dL (NEG) Urine Blood Small (NEG) Urine Nitrite Negative (NEG) Urine Bilirubin Negative (NEG) Urine Urobilinogen Dipstick 1.0 mg/dL (0.2 mg/dL) Urine Leukocyte Esterase Negative (NEG) Urine RBC 3-5 /HPF (0-2) Urine WBC 1-4 /HPF (0-4) Urine Squamous Epithelial Cells Few /LPF Urine Bacteria 0 /HPF (0-FEW) Urine Hyaline Casts Few /HPF Urine Mucus Slight /LPF Urine Opiates Screen Neg (NEG) Urine Methadone Screen Neg (NEG) Urine Barbiturates Neg (NEG) Urine Phencyclidine Screen Neg (NEG) Urine Amphetamine/Methamphetamine Neg (NEG) Urine Benzodiazepines Screen Neg (NEG) Urine Cocaine Screen Neg (NEG) Urine Cannabinoids Screen Neg (NEG) Urine Ethyl Alcohol Neg (NEG) Test 05/20/18 20:19 05/20/18 21:40 05/21/18 07:13 05/21/18 11:05 Glucose (Fingerstick) 120 mg/dL (70-99) 71 mg/dL (70-99) Lactic Acid Level 0.6 mmol/L (0.4-2.0) White Blood Count 21.6 x10^3/uL (4.0-11.0) Red Blood Count 3.83 x10^6/uL (4.30-5.70) Hemoglobin 11.3 g/dL (13.0-17.5) Hematocrit 34.0 % (39.0-53.0) Mean Corpuscular Volume 89 fL (79-100) Mean Corpuscular Hemoglobin 30 pg (25-35) Mean Corpuscular Hemoglobin Concent 33 g/dL (31-37) Red Cell Distribution Width 14.5 % (11.5-14.5) Platelet Count 228 x10^3/uL (140-400) Neutrophils (%) (Auto) 78 % (31-73) Lymphocytes (%) (Auto) 10 % (24-48) Monocytes (%) (Auto) 12 % (0-9) Eosinophils (%) (Auto) 0 % (0-3) Basophils (%) (Auto) 0 % (0-3) Neutrophils # (Auto) 16.8 x10^3uL (1.8-7.7) Lymphocytes # (Auto) 2.1 x10^3/uL (1.0-4.8) Monocytes # (Auto) 2.6 x10^3/uL (0.0-1.1) Eosinophils # (Auto) 0.0 x10^3/uL (0.0-0.7) Basophils # (Auto) 0.1 x10^3/uL (0.0-0.2) Sodium Level 135 mmol/L (136-145) Potassium Level 4.6 mmol/L (3.5-5.1) Chloride Level 108 mmol/L (98-107) Carbon Dioxide Level 19 mmol/L (21-32) Anion Gap 8 (6-14) Blood Urea Nitrogen 36 mg/dL (8-26) Creatinine 2.3 mg/dL (0.7-1.3) Estimated GFR (Cockcroft-Gault) 29.5 BUN/Creatinine Ratio 16 (6-20) Glucose Level 126 mg/dL (70-99) Calcium Level 6.6 mg/dL (8.5-10.1) Total Bilirubin 0.6 mg/dL (0.2-1.0) Aspartate Amino Transf (AST/SGOT) 18 U/L (15-37) Alanine Aminotransferase (ALT/SGPT) 16 U/L (16-63) Alkaline Phosphatase 59 U/L (46-116) Total Protein 5.8 g/dL (6.4-8.2) Albumin 1.8 g/dL (3.4-5.0) Albumin/Globulin Ratio 0.5 (1.0-1.7) Test 05/21/18 11:27 05/21/18 13:20 Glucose (Fingerstick) 118 mg/dL (70-99) CSF Color Colorless CSF Clarity Clear CSF WBC 157 CSF RBC 2 CSF Mononuclear WBCs % 62 % CSF Polynuclear WBCs (%) 38 % CSF Glucose 59 mg/dL (37-70) CSF Total Protein 61.7 mg/dL (15.0-45.0) Laboratory Tests Test 05/20/18 16:23 05/20/18 18:45 05/20/18 19:47 05/20/18 20:19 Glucose (Fingerstick) 117 mg/dL (70-99) 120 mg/dL (70-99) Erythrocyte Sedimentation Rate 57 (0-15) Prothrombin Time 13.8 SEC (11.7-14.0) Prothromb Time International Ratio 1.1 (0.8-1.1) C-Reactive Protein High Sensitivity 11.08 mg/L (0.00-3.00) Urine Collection Type Unknown Urine Color Yellow Urine Clarity Clear Urine pH 6.5 Urine Specific [place] 1.020 Urine Protein >=300 mg/dL (NEG-TRACE) Urine Glucose (UA) 250 mg/dL (NEG) Urine Ketones (Stick) Negative mg/dL (NEG) Urine Blood Small (NEG) Urine Nitrite Negative (NEG) Urine Bilirubin Negative (NEG) Urine Urobilinogen Dipstick 1.0 mg/dL (0.2 mg/dL) Urine Leukocyte Esterase Negative (NEG) Urine RBC 3-5 /HPF (0-2) Urine WBC 1-4 /HPF (0-4) Urine Squamous Epithelial Cells Few /LPF Urine Bacteria 0 /HPF (0-FEW) Urine Hyaline Casts Few /HPF Urine Mucus Slight /LPF Urine Opiates Screen Neg (NEG) Urine Methadone Screen Neg (NEG) Urine Barbiturates Neg (NEG) Urine Phencyclidine Screen Neg (NEG) Urine Amphetamine/Methamphetamine Neg (NEG) Urine Benzodiazepines Screen Neg (NEG) Urine Cocaine Screen Neg (NEG) Urine Cannabinoids Screen Neg (NEG) Urine Ethyl Alcohol Neg (NEG) Test 05/20/18 21:40 05/21/18 07:13 05/21/18 11:05 05/21/18 11:27 Lactic Acid Level 0.6 mmol/L (0.4-2.0) Glucose (Fingerstick) 71 mg/dL (70-99) 118 mg/dL (70-99) White Blood Count 21.6 x10^3/uL (4.0-11.0) Red Blood Count 3.83 x10^6/uL (4.30-5.70) Hemoglobin 11.3 g/dL (13.0-17.5) Hematocrit 34.0 % (39.0-53.0) Mean Corpuscular Volume 89 fL (79-100) Mean Corpuscular Hemoglobin 30 pg (25-35) Mean Corpuscular Hemoglobin Concent 33 g/dL (31-37) Red Cell Distribution Width 14.5 % (11.5-14.5) Platelet Count 228 x10^3/uL (140-400) Neutrophils (%) (Auto) 78 % (31-73) Lymphocytes (%) (Auto) 10 % (24-48) Monocytes (%) (Auto) 12 % (0-9) Eosinophils (%) (Auto) 0 % (0-3) Basophils (%) (Auto) 0 % (0-3) Neutrophils # (Auto) 16.8 x10^3uL (1.8-7.7) Lymphocytes # (Auto) 2.1 x10^3/uL (1.0-4.8) Monocytes # (Auto) 2.6 x10^3/uL (0.0-1.1) Eosinophils # (Auto) 0.0 x10^3/uL (0.0-0.7) Basophils # (Auto) 0.1 x10^3/uL (0.0-0.2) Sodium Level 135 mmol/L (136-145) Potassium Level 4.6 mmol/L (3.5-5.1) Chloride Level 108 mmol/L (98-107) Carbon Dioxide Level 19 mmol/L (21-32) Anion Gap 8 (6-14) Blood Urea Nitrogen 36 mg/dL (8-26) Creatinine 2.3 mg/dL (0.7-1.3) Estimated GFR (Cockcroft-Gault) 29.5 BUN/Creatinine Ratio 16 (6-20) Glucose Level 126 mg/dL (70-99) Calcium Level 6.6 mg/dL (8.5-10.1) Total Bilirubin 0.6 mg/dL (0.2-1.0) Aspartate Amino Transf (AST/SGOT) 18 U/L (15-37) Alanine Aminotransferase (ALT/SGPT) 16 U/L (16-63) Alkaline Phosphatase 59 U/L (46-116) Total Protein 5.8 g/dL (6.4-8.2) Albumin 1.8 g/dL (3.4-5.0) Albumin/Globulin Ratio 0.5 (1.0-1.7) Test 05/21/18 13:20 CSF Color Colorless CSF Clarity Clear CSF WBC 157 CSF RBC 2 CSF Mononuclear WBCs % 62 % CSF Polynuclear WBCs (%) 38 % CSF Glucose 59 mg/dL (37-70) CSF Total Protein 61.7 mg/dL (15.0-45.0) Review All relevant outside records, renal labs, imaging studies, telemetry/EKG's were reviewed. LAUREANO BORGES MD May 21, 2018 15:28
[2018-05-21] MEDS ORDERED: VANCOMYCIN 2 GM in IV NORMAL SALINE 500ML BAG 500 ML IV ONE (15:30)
--- NOTE | 2018-05-21 16:19 | PDOC ---
PROGRESS NOTES Assessment Assessment Fever. Chills. Headaches. Viral meningitis or encephalitis? Dizziness. Leukocytosis. Renal failure or AGNIESZKA. Nausea. Vomiting. DM. CAD. HTN. RECOMMENDATIONS/PLAN: Consulted ID. Keep good hydration. CSF lab studies: see orders. FU blood culture results. Treat medical diseases. CSF WBC: 157, poly 38%, mono 62%, protein 61.7, glucose 59. Cultures pending. HISTORY OF THE PRESENT ILLNESS: 58-y-old [place] origin male patient with Hx of CAD and HTN developed symptoms of fever, chills, headaches, nausea, vomiting for 2 days before coming to the ER of [facility]. His HCT was unremarkable. His WBC is 19.6. Past Medical History CAD, Diabetes-Type II, Hypertension Past Surgical History: "Open heart surgery" Family History HLD ALLERGY: Unknown MEDICATIONS: Refer to MAR SOCIAL HISTORY: Lives at home. Denies smoking, drinking, and illicit drug use. REVIEW OF SYSTEMS: Constitutional: Over weight. Head: No traumatic brain or head injury. Skin: No edema, or rash. Ear: No infection. Eyes: No vision loss or color blindness. Nose: No bleeding or purulent discharges. Hearing: No hearing decrease. Neck: No injury. Cardiac: HTN. Pulmonary: No COPD. GI: No GI ulcer, GI bleeding. Urinary/genital: No dysuria, incontinence, urinary retention. Endocrinologic: Diabetes Mellitus. Skeletomuscular: No muscular atrophy, deformity. Neurological: see HP. Psychiatric: Denies drug use/abuse. Otherwise, not [id number] review of systems. PHYSICAL EXAMINATION: General appearance is in acute distress. HEENT: Normocephalic and nontraumatic. Eyes, nose, ears, and throat are unremarkable. Neck is supple. No lymphadenopathy. No bruits are heard over the carotid artery. No crepitus. Cardiovascular: S1, S2, regular rate and rhythm. Pulmonary: Clear to auscultation bilaterally. Abdomen: Bowel sounds are positive. Abdomen is soft, nontender, and nondistended. Extremities: No rash, lesions, or edema. No restriction of range of motion NEUROLOGICAL EXAMINATION: Drowsiness. Oriented to time, place and person. PERRL. EOMI. CN: no focal findings. Muscle tone: within normal. Muscle strength: 5 DTR: 2 Plantar reflex: Flexor response bilaterally Gait: not examined in bed. Sensory exam: no abnormal findings. No cerebellar signs elicited. F-T-N test accurate. Objective Objective Vital Signs Date Time Temp Pulse Resp B/P (MAP) Pulse Ox O2 Delivery O2 Flow Rate FiO2 05/21/18 15:00 97.9 62 18 140/77 (98) 100 Room Air 97.9 Intake and Output 05/21/18 07:00 Intake Total 2900 ml Balance 2900 ml Intake Oral 900 ml IV Total 2000 ml # Voids 5 Vitals Signs Vitals VS - Last 72 Hours, by Label Date Time Temp Pulse Resp B/P (MAP) Pulse Ox O2 Delivery O2 Flow Rate FiO2 05/21/18 15:00 97.9 62 18 140/77 (98) 100 Room Air 97.9 05/21/18 11:00 98.7 70 16 148/64 (92) 98 Room Air 98.7 05/21/18 10:36 Room Air 05/21/18 09:36 Room Air 05/21/18 09:07 77 147/64 05/21/18 08:00 Room Air 05/21/18 07:00 102.2 77 18 147/64 (91) 99 Room Air 102.2 05/21/18 03:06 100.3 77 20 152/73 (99) 99 Room Air 100.3 05/20/18 23:03 100.0 56 20 119/69 (86) 98 Room Air 100.0 05/20/18 19:15 Room Air 05/20/18 19:00 101.5 84 20 165/73 (103) 99 Room Air 101.5 05/20/18 18:31 Room Air 05/20/18 18:30 88 152/74 05/20/18 17:52 Room Air 05/20/18 15:28 Room Air 05/20/18 15:00 98.4 88 17 152/74 (100) 98 Room Air 98.4 05/20/18 13:38 Room Air 05/20/18 13:32 84 17 98 05/20/18 13:08 13 99 Room Air 05/20/18 13:02 87 17 99 05/20/18 12:32 87 19 98 05/20/18 12:02 84 17 98 05/20/18 11:32 86 16 98 05/20/18 11:02 85 13 99 05/20/18 10:32 87 20 99 05/20/18 10:00 99.7 98 14 175/83 (113) 98 Room Air 99.7 Laboratory Laboratory Laboratory Tests Test 05/20/18 16:23 05/20/18 18:45 05/20/18 19:47 05/20/18 20:19 Glucose (Fingerstick) 117 mg/dL (70-99) 120 mg/dL (70-99) Erythrocyte Sedimentation Rate 57 (0-15) Prothrombin Time 13.8 SEC (11.7-14.0) Prothromb Time International Ratio 1.1 (0.8-1.1) C-Reactive Protein High Sensitivity 11.08 mg/L (0.00-3.00) Urine Collection Type Unknown Urine Color Yellow Urine Clarity Clear Urine pH 6.5 Urine Specific [place] 1.020 Urine Protein >=300 mg/dL (NEG-TRACE) Urine Glucose (UA) 250 mg/dL (NEG) Urine Ketones (Stick) Negative mg/dL (NEG) Urine Blood Small (NEG) Urine Nitrite Negative (NEG) Urine Bilirubin Negative (NEG) Urine Urobilinogen Dipstick 1.0 mg/dL (0.2 mg/dL) Urine Leukocyte Esterase Negative (NEG) Urine RBC 3-5 /HPF (0-2) Urine WBC 1-4 /HPF (0-4) Urine Squamous Epithelial Cells Few /LPF Urine Bacteria 0 /HPF (0-FEW) Urine Hyaline Casts Few /HPF Urine Mucus Slight /LPF Urine Opiates Screen Neg (NEG) Urine Methadone Screen Neg (NEG) Urine Barbiturates Neg (NEG) Urine Phencyclidine Screen Neg (NEG) Urine Amphetamine/Methamphetamine Neg (NEG) Urine Benzodiazepines Screen Neg (NEG) Urine Cocaine Screen Neg (NEG) Urine Cannabinoids Screen Neg (NEG) Urine Ethyl Alcohol Neg (NEG) Test 05/20/18 21:40 05/21/18 07:13 05/21/18 11:05 05/21/18 11:27 Lactic Acid Level 0.6 mmol/L (0.4-2.0) Glucose (Fingerstick) 71 mg/dL (70-99) 118 mg/dL (70-99) White Blood Count 21.6 x10^3/uL (4.0-11.0) Red Blood Count 3.83 x10^6/uL (4.30-5.70) Hemoglobin 11.3 g/dL (13.0-17.5) Hematocrit 34.0 % (39.0-53.0) Mean Corpuscular Volume 89 fL (79-100) Mean Corpuscular Hemoglobin 30 pg (25-35) Mean Corpuscular Hemoglobin Concent 33 g/dL (31-37) Red Cell Distribution Width 14.5 % (11.5-14.5) Platelet Count 228 x10^3/uL (140-400) Neutrophils (%) (Auto) 78 % (31-73) Lymphocytes (%) (Auto) 10 % (24-48) Monocytes (%) (Auto) 12 % (0-9) Eosinophils (%) (Auto) 0 % (0-3) Basophils (%) (Auto) 0 % (0-3) Neutrophils # (Auto) 16.8 x10^3uL (1.8-7.7) Lymphocytes # (Auto) 2.1 x10^3/uL (1.0-4.8) Monocytes # (Auto) 2.6 x10^3/uL (0.0-1.1) Eosinophils # (Auto) 0.0 x10^3/uL (0.0-0.7) Basophils # (Auto) 0.1 x10^3/uL (0.0-0.2) Sodium Level 135 mmol/L (136-145) Potassium Level 4.6 mmol/L (3.5-5.1) Chloride Level 108 mmol/L (98-107) Carbon Dioxide Level 19 mmol/L (21-32) Anion Gap 8 (6-14) Blood Urea Nitrogen 36 mg/dL (8-26) Creatinine 2.3 mg/dL (0.7-1.3) Estimated GFR (Cockcroft-Gault) 29.5 BUN/Creatinine Ratio 16 (6-20) Glucose Level 126 mg/dL (70-99) Calcium Level 6.6 mg/dL (8.5-10.1) Total Bilirubin 0.6 mg/dL (0.2-1.0) Aspartate Amino Transf (AST/SGOT) 18 U/L (15-37) Alanine Aminotransferase (ALT/SGPT) 16 U/L (16-63) Alkaline Phosphatase 59 U/L (46-116) Total Protein 5.8 g/dL (6.4-8.2) Albumin 1.8 g/dL (3.4-5.0) Albumin/Globulin Ratio 0.5 (1.0-1.7) Test 05/21/18 13:20 CSF Color Colorless CSF Clarity Clear CSF WBC 157 CSF RBC 2 CSF Mononuclear WBCs % 62 % CSF Polynuclear WBCs (%) 38 % CSF Glucose 59 mg/dL (37-70) CSF Total Protein 61.7 mg/dL (15.0-45.0) Microbiology 05/21/18 CSF Gram Stain - Final, Complete Medication Medications Current Medications Acetaminophen (Tylenol) 650 mg PRN Q6HRS PRN PO MILD PAIN / TEMP Last administered on 05/21/18at 09:07; Start 05/20/18 at 19:30 Acetaminophen (Tylenol) 1,000 mg 1X ONCE PO Last administered on 05/21/18at 11: 10; Start 05/21/18 at 10:00; Stop 05/21/18 at 10:01; Status DC Aspirin (Children'S Aspirin) 81 mg DAILY PO Last administered on 05/21/18at 09: 07; Start 05/20/18 at 19:00 Cefepime HCl (Maxipime) 1 gm Q12HR IVP Last administered on 05/21/18at 09:09; Start 05/20/18 at 21:00; Stop 05/21/18 at 15:26; Status DC Cefepime HCl (Maxipime) 2 gm Q12HR IVP ; Start 05/21/18 at 21:00 Cefepime HCl 1 gm/ Dextrose 50 ml @ 100 mls/hr Q12HR IV ; Start 05/20/18 at 21: 00; Status UNV Fentanyl Citrate (Fentanyl 2ml Vial) 50 mcg PRN Q3HRS PRN IV PAIN Last administered on 05/20/18at 17:52; Start 05/20/18 at 17:45 Lactobacillus Rhamnosus (Culturelle) 1 cap BID PO ; Start 05/21/18 at 21:00 Lidocaine/Sodium Bicarbonate (Buffered Lidocaine 1%) 6 ml 1X ONCE INJ ; Start 05/21/18 at 12:15; Stop 05/21/18 at 12:16; Status DC Metoprolol Tartrate (Lopressor) 25 mg DAILY PO Last administered on 05/21/18at 09:07; Start 05/20/18 at 19:00 Oxycodone/ Acetaminophen (Percocet 5/325) 1 tab PRN Q6HRS PRN PO MODERATE - SEVERE PAIN Last administered on 05/21/18at 09:36; Start 05/21/18 at 09:30 Topiramate (Topamax) 25 mg BID PO Last administered on 05/21/18at 09:07; Start 05/20/18 at 21:00 Vancomycin HCl (Vanco Per Pharmacy) 1 each PRN DAILY PRN MC SEE COMMENTS; Start 05/21/18 at 15:00 Vancomycin HCl 2 gm/Sodium Chloride 500 ml @ 250 mls/hr 1X ONCE IV Last administered on 05/21/18at 15:20; Start 05/21/18 at 15:30; Stop 05/21/18 at 17:29 Comment Review of Relevant I have reviewed the following items gordo (where applicable) has been applied. JOHANNA VALENTIN MD May 21, 2018 16:19
--- NOTE | 2018-05-21 16:32 | RAD ---
RENAL COMPLETE BILATERAL History: Acute kidney injury, diabetes, hypertension Comparison: None. Findings: Multiple sonographic images of the kidneys and urinary bladder are submitted. Right kidney measured 12.9 x 5.8 x 6.6 cm. Left kidney measured 13.4 x 5.2 x 6.4 cm. There is no hydronephrosis of either kidney. Renal cortical echogenicity is considered within normal limits. Urinary bladder morphology is within normal limits. Impression: 1. No significant abnormality is demonstrated. Electronically signed by: Ernesto Paul MD (05/21/2018 4:30 PM) [id number]
[2018-05-21] MEDS: VANCOMYCIN PER PHARMACY MC PRN (16:36)
[2018-05-21] MEDS ORDERED: IV NORMAL SALINE 1000ML BAG 1,000 ML IV SCH (18:15)
[2018-05-21 19:00] VITALS: BP 161/78
[2018-05-21] MEDS: LACTOBACILLUS RHAMNOSUS GG 1 CAPSULE. PO SCH (21:20)
[2018-05-21] MEDS: CEFEPIME HCL IV Push 2 GM VIAL. IVP SCH (21:21)
[2018-05-21 23:00] VITALS: BP 154/70
--- NOTE | 2018-05-22 01:16 | CONS ---
DATE OF CONSULTATION: 05/21/2018 REQUESTING PHYSICIAN: Dr. Izquierdo and Dr. Stiles. REASON FOR CONSULTATION: Headache and fever. HISTORY OF PRESENT ILLNESS: This is a 58-year-old gentleman who came in with a 4-day history of headache and fever. The patient has had some diarrhea. No nausea or vomiting. Does have light sensitivity. Denies any visual symptoms other than the light sensitivity. Denies any tingling or numbness. Denies any chest pain, shortness of breath, abdominal pain or urinary symptoms. The patient had CT and MRI done, which was unremarkable for any acute changes. Continues to have significant fever up to 102.2 and the white count has been 19,000. The patient has been put on cefepime and consult has been requested. PAST MEDICAL HISTORY: Positive for coronary artery disease. He has had the coronary artery bypass grafting done. Diabetes mellitus and hypertension. SOCIAL HISTORY: Positive for smoking still. No alcohol use or drug use. The patient does not work. There is no outdoor activity he says. He denies any tick bite or mosquito bite. REVIEW OF SYSTEMS: As per HPI. All other systems reviewed are negative. ALLERGIES: No known drug allergies. CURRENT MEDICATIONS: Reviewed. The patient is on cefepime. PHYSICAL EXAMINATION: GENERAL: Alert and oriented gentleman, not in distress. VITAL SIGNS: Stable with T-max 102.2, pulse 77, respiration 18, blood pressure 147/64. HEENT: NAD. NECK: Supple, no JVP, no lymphadenopathy. LUNGS: Clear. HEART: S1, S2 regular. ABDOMEN: Benign. EXTREMITIES: No edema or cyanosis. SKIN: Unremarkable. The patient does not have any rash. NEUROLOGIC: The patient is neurologically intact. Kernig and Brudzinski signs are negative. LABORATORY DATA: White count is 19.6, hemoglobin 14.7 and platelets are normal. Sed rate is 57. BUN and creatinine is 39 and 2.7. Lactic acid was normal. Drug screen is negative. Urinalysis is unremarkable. Chest x-ray is not showing any acute changes. Brain MRI was unremarkable. IMPRESSION: 1. Fever and headache, need to rule out [employer] HEADING infection. 2. Fever. 3. Leukocytosis. 4. Diabetes. 5. Hypertension. 6. Coronary artery disease. PLAN: I recommend continue cefepime. We will get lumbar puncture with the analysis. Supportive care. We will also get the culture data and continue to follow. Thank you very much Dr. Izquierdo for giving me the opportunity to participate in this patient's care. JIGAR PUCKETT MD DR: CRISTINA/leyla JOB#: [id number] / [id number]
[2018-05-22] MEDS: oxyCODONE/APAP 5/325 1 TAB TABLET PO PRN ×2 (01:51→08:47)
[2018-05-22 03:00] VITALS: BP 129/78
[2018-05-22 04:48] LABS: CALCIUM 6.5 mg/dL (8.5-10.1); CREATININE 2.1 mg/dL (0.7-1.3); GFR 32.7; POTASSIUM 4.1 mmol/L (3.5-5.1)
[2018-05-22] MEDS: IV NORMAL SALINE 1000ML BAG 1,000 ML IV SCH ×3 (05:03→17:06)
[2018-05-22 07:00] VITALS: BP 155/63
[2018-05-22] MEDS: fentaNYL PF VIAL 100 MCG/2 ML VIAL IV PRN ×2 (08:45→16:12)
[2018-05-22] MEDS: LACTOBACILLUS RHAMNOSUS GG 1 CAPSULE. PO SCH ×2 (08:46→20:54)
[2018-05-22] MEDS: ASPIRIN CHEWABLE 81 MG TABLET. PO SCH (08:46)
[2018-05-22] MEDS: TOPIRAMATE 25 MG TABLET. PO SCH ×2 (08:47→20:54)
[2018-05-22] MEDS: METOPROLOL TART IMMED RELEASE 25 MG TABLET. PO SCH (08:47)
[2018-05-22] MEDS: CEFEPIME HCL IV Push 2 GM VIAL. IVP SCH (09:00)
[2018-05-22 11:00] VITALS: BP 138/91
--- NOTE | 2018-05-22 11:06 | PDOC ---
PROGRESS NOTES Chief Complaint Chief Complaint LATE entry, pt seen late on 05/21 headache nausea meningitis History of Present Illness History of Present Illness LP results discussed IV vanc started, cefepime dose increased Vitals Vitals Vital Signs Date Time Temp Pulse Resp B/P (MAP) Pulse Ox O2 Delivery O2 Flow Rate FiO2 05/22/18 09:47 16 Room Air 05/22/18 09:15 100 05/22/18 08:47 73 155/63 05/22/18 07:00 97.7 97.7 Physical Exam General: Alert, Oriented X3, Cooperative, mild distress Heart: Regular rate, Normal S2 Abdomen: Normal bowel sounds Skin: No rashes Labs LABS Laboratory Tests Test 05/21/18 11:27 05/21/18 13:20 05/21/18 16:31 05/21/18 20:37 Glucose (Fingerstick) 118 mg/dL (70-99) 113 mg/dL (70-99) 133 mg/dL (70-99) CSF Color Colorless CSF Clarity Clear CSF WBC 157 CSF RBC 2 CSF Mononuclear WBCs % 62 % CSF Polynuclear WBCs (%) 38 % CSF Glucose 59 mg/dL (37-70) CSF Total Protein 61.7 mg/dL (15.0-45.0) Test 05/22/18 03:35 05/22/18 07:44 Sodium Level 135 mmol/L (136-145) Potassium Level 4.1 mmol/L (3.5-5.1) Chloride Level 108 mmol/L (98-107) Carbon Dioxide Level 16 mmol/L (21-32) Anion Gap 11 (6-14) Blood Urea Nitrogen 35 mg/dL (8-26) Creatinine 2.1 mg/dL (0.7-1.3) Estimated GFR (Cockcroft-Gault) 32.7 Glucose Level 119 mg/dL (70-99) Calcium Level 6.5 mg/dL (8.5-10.1) Glucose (Fingerstick) 99 mg/dL (70-99) Assessment and Plan Assessmemt and Plan Problems Medical Problems: (1) Acute renal failure Status: Acute (2) Migraine Status: Acute Comment Review of Relevant I have reviewed the following items gordo (where applicable) has been applied. Labs Laboratory Tests Test 05/20/18 16:23 05/20/18 18:45 05/20/18 19:47 05/20/18 20:19 Glucose (Fingerstick) 117 mg/dL (70-99) 120 mg/dL (70-99) Erythrocyte Sedimentation Rate 57 (0-15) Prothrombin Time 13.8 SEC (11.7-14.0) Prothromb Time International Ratio 1.1 (0.8-1.1) C-Reactive Protein High Sensitivity 11.08 mg/L (0.00-3.00) Urine Collection Type Unknown Urine Color Yellow Urine Clarity Clear Urine pH 6.5 Urine Specific [place] 1.020 Urine Protein >=300 mg/dL (NEG-TRACE) Urine Glucose (UA) 250 mg/dL (NEG) Urine Ketones (Stick) Negative mg/dL (NEG) Urine Blood Small (NEG) Urine Nitrite Negative (NEG) Urine Bilirubin Negative (NEG) Urine Urobilinogen Dipstick 1.0 mg/dL (0.2 mg/dL) Urine Leukocyte Esterase Negative (NEG) Urine RBC 3-5 /HPF (0-2) Urine WBC 1-4 /HPF (0-4) Urine Squamous Epithelial Cells Few /LPF Urine Bacteria 0 /HPF (0-FEW) Urine Hyaline Casts Few /HPF Urine Mucus Slight /LPF Urine Opiates Screen Neg (NEG) Urine Methadone Screen Neg (NEG) Urine Barbiturates Neg (NEG) Urine Phencyclidine Screen Neg (NEG) Urine Amphetamine/Methamphetamine Neg (NEG) Urine Benzodiazepines Screen Neg (NEG) Urine Cocaine Screen Neg (NEG) Urine Cannabinoids Screen Neg (NEG) Urine Ethyl Alcohol Neg (NEG) Test 05/20/18 21:40 05/21/18 07:13 05/21/18 11:05 05/21/18 11:27 Lactic Acid Level 0.6 mmol/L (0.4-2.0) Glucose (Fingerstick) 71 mg/dL (70-99) 118 mg/dL (70-99) White Blood Count 21.6 x10^3/uL (4.0-11.0) Red Blood Count 3.83 x10^6/uL (4.30-5.70) Hemoglobin 11.3 g/dL (13.0-17.5) Hematocrit 34.0 % (39.0-53.0) Mean Corpuscular Volume 89 fL (79-100) Mean Corpuscular Hemoglobin 30 pg (25-35) Mean Corpuscular Hemoglobin Concent 33 g/dL (31-37) Red Cell Distribution Width 14.5 % (11.5-14.5) Platelet Count 228 x10^3/uL (140-400) Neutrophils (%) (Auto) 78 % (31-73) Lymphocytes (%) (Auto) 10 % (24-48) Monocytes (%) (Auto) 12 % (0-9) Eosinophils (%) (Auto) 0 % (0-3) Basophils (%) (Auto) 0 % (0-3) Neutrophils # (Auto) 16.8 x10^3uL (1.8-7.7) Lymphocytes # (Auto) 2.1 x10^3/uL (1.0-4.8) Monocytes # (Auto) 2.6 x10^3/uL (0.0-1.1) Eosinophils # (Auto) 0.0 x10^3/uL (0.0-0.7) Basophils # (Auto) 0.1 x10^3/uL (0.0-0.2) Sodium Level 135 mmol/L (136-145) Potassium Level 4.6 mmol/L (3.5-5.1) Chloride Level 108 mmol/L (98-107) Carbon Dioxide Level 19 mmol/L (21-32) Anion Gap 8 (6-14) Blood Urea Nitrogen 36 mg/dL (8-26) Creatinine 2.3 mg/dL (0.7-1.3) Estimated GFR (Cockcroft-Gault) 29.5 BUN/Creatinine Ratio 16 (6-20) Glucose Level 126 mg/dL (70-99) Calcium Level 6.6 mg/dL (8.5-10.1) Total Bilirubin 0.6 mg/dL (0.2-1.0) Aspartate Amino Transf (AST/SGOT) 18 U/L (15-37) Alanine Aminotransferase (ALT/SGPT) 16 U/L (16-63) Alkaline Phosphatase 59 U/L (46-116) Total Protein 5.8 g/dL (6.4-8.2) Albumin 1.8 g/dL (3.4-5.0) Albumin/Globulin Ratio 0.5 (1.0-1.7) Test 05/21/18 13:20 05/21/18 16:31 05/21/18 20:37 05/22/18 03:35 CSF Color Colorless CSF Clarity Clear CSF WBC 157 CSF RBC 2 CSF Mononuclear WBCs % 62 % CSF Polynuclear WBCs (%) 38 % CSF Glucose 59 mg/dL (37-70) CSF Total Protein 61.7 mg/dL (15.0-45.0) Glucose (Fingerstick) 113 mg/dL (70-99) 133 mg/dL (70-99) Sodium Level 135 mmol/L (136-145) Potassium Level 4.1 mmol/L (3.5-5.1) Chloride Level 108 mmol/L (98-107) Carbon Dioxide Level 16 mmol/L (21-32) Anion Gap 11 (6-14) Blood Urea Nitrogen 35 mg/dL (8-26) Creatinine 2.1 mg/dL (0.7-1.3) Estimated GFR (Cockcroft-Gault) 32.7 Glucose Level 119 mg/dL (70-99) Calcium Level 6.5 mg/dL (8.5-10.1) Test 05/22/18 07:44 Glucose (Fingerstick) 99 mg/dL (70-99) Laboratory Tests Test 05/21/18 11:27 05/21/18 13:20 05/21/18 16:31 05/21/18 20:37 Glucose (Fingerstick) 118 mg/dL (70-99) 113 mg/dL (70-99) 133 mg/dL (70-99) CSF Color Colorless CSF Clarity Clear CSF WBC 157 CSF RBC 2 CSF Mononuclear WBCs % 62 % CSF Polynuclear WBCs (%) 38 % CSF Glucose 59 mg/dL (37-70) CSF Total Protein 61.7 mg/dL (15.0-45.0) Test 05/22/18 03:35 05/22/18 07:44 Sodium Level 135 mmol/L (136-145) Potassium Level 4.1 mmol/L (3.5-5.1) Chloride Level 108 mmol/L (98-107) Carbon Dioxide Level 16 mmol/L (21-32) Anion Gap 11 (6-14) Blood Urea Nitrogen 35 mg/dL (8-26) Creatinine 2.1 mg/dL (0.7-1.3) Estimated GFR (Cockcroft-Gault) 32.7 Glucose Level 119 mg/dL (70-99) Calcium Level 6.5 mg/dL (8.5-10.1) Glucose (Fingerstick) 99 mg/dL (70-99) Microbiology 05/20/18 Blood Culture - Preliminary, Resulted NO GROWTH AFTER 1 DAY 05/21/18 CSF Gram Stain - Final, Complete Medications Current Medications Fentanyl Citrate (Fentanyl 2ml Vial) 100 mcg STK-MED ONCE .ROUTE ; Start at 10:36; Stop 05/20/18 at 10:37; Status DC Ondansetron HCl (Zofran) 4 mg STK-MED ONCE .ROUTE ; Start 05/20/18 at 10:36; Stop 05/20/18 at 10:37; Status DC Sodium Chloride 1,000 ml @ 1,000 mls/hr 1X ONCE IV Last administered on at 13:04; Start 05/20/18 at 13:00; Stop 05/20/18 at 13:59; Status DC Sumatriptan Succinate (Imitrex) 6 mg 1X ONCE SQ Last administered on at 13:10; Start 05/20/18 at 13:00; Stop 05/20/18 at 13:01; Status DC Fentanyl Citrate (Fentanyl 2ml Vial) 50 mcg 1X ONCE IV Last administered on at 13:08; Start 05/20/18 at 13:00; Stop 05/20/18 at 13:01; Status DC Ondansetron HCl (Zofran) 4 mg PRN Q8HRS PRN IV NAUSEA/VOMITING; Start 05/20/18 at 13:00; Stop 05/21/18 at 12:59; Status DC Morphine Sulfate (Morphine Sulfate) 4 mg PRN Q2HR PRN IV PAIN; Start 05/20/18 at 13:00; Stop 05/21/18 at 12:59; Status DC Sodium Chloride 1,000 ml @ 250 mls/hr Q4H IV Last administered on 05/21/18at 09 :13; Start 05/20/18 at 12:49; Stop 05/21/18 at 12:48; Status DC Fentanyl Citrate (Fentanyl 2ml Vial) 50 mcg PRN Q3HRS PRN IV PAIN Last administered on 05/22/18at 08:45; Start 05/20/18 at 17:45 Topiramate (Topamax) 25 mg BID PO Last administered on 05/22/18 08:47; Start 05/20/18 at 21:00 Metoprolol Tartrate (Lopressor) 25 mg DAILY PO Last administered on 05/22/18 08:47; Start 05/20/18 at 19:00 Aspirin (Children'S Aspirin) 81 mg DAILY PO Last administered on 05/22/18 08: 46; Start 05/20/18 at 19:00 Acetaminophen (Tylenol) 650 mg PRN Q6HRS PRN PO MILD PAIN / TEMP Last administered on 05/21/18 09:07; Start 05/20/18 at 19:30 Cefepime HCl 1 gm/ Dextrose 50 ml @ 100 mls/hr Q12HR IV ; Start 05/20/18 at 21: 00; Status UNV Cefepime HCl (Maxipime) 1 gm Q12HR IVP Last administered on 05/21/18at 09:09; Start 05/20/18 at 21:00; Stop 05/21/18 at 15:26; Status DC Acetaminophen (Tylenol) 1,000 mg 1X ONCE PO Last administered on 05/21/18at 11: 10; Start 05/21/18 at 10:00; Stop 05/21/18 at 10:01; Status DC Oxycodone/ Acetaminophen (Percocet 5/325) 1 tab PRN Q6HRS PRN PO MODERATE - SEVERE PAIN Last administered on 05/22/18 08:47; Start 05/21/18 at 09:30 Lidocaine/Sodium Bicarbonate (Buffered Lidocaine 1%) 6 ml 1X ONCE INJ ; Start 05/21/18 at 12:15; Stop 05/21/18 at 12:16; Status DC Lactobacillus Rhamnosus (Culturelle) 1 cap BID PO Last administered on at 08:46; Start 05/21/18 at 21:00 Vancomycin HCl (Vanco Per Pharmacy) 1 each PRN DAILY PRN MC SEE COMMENTS Last administered on 05/21/18at 16:36; Start 05/21/18 at 15:00 Vancomycin HCl 2 gm/Sodium Chloride 500 ml @ 250 mls/hr 1X ONCE IV Last administered on 05/21/18at 15:20; Start 05/21/18 at 15:30; Stop 05/21/18 at 17:29 ; Status DC Cefepime HCl (Maxipime) 2 gm Q12HR IVP Last administered on 05/22/18at 09:00; Start 05/21/18 at 21:00 Vancomycin HCl 1.25 gm/Sodium Chloride 250 ml @ 167 mls/hr Q24H IV ; Start at 16:00 Vancomycin HCl (Vancomycin Trough Level) 1 each 1X ONCE MC ; Start 05/23/18 at 15:30; Stop 05/23/18 at 15:31 Sodium Chloride 1,000 ml @ 125 mls/hr Q8H IV ; Start 05/21/18 at 18:15; Stop at 19:13; Status DC Sodium Chloride 1,000 ml @ 125 mls/hr Q8HRS IV Last administered on 05/22/18at 05:03; Start 05/21/18 at 22:00 Active Scripts Active Reported Aspirin 81 Mg Tab.chew 1 Tab PO DAILY Lisinopril 20 Mg Tablet 20 Mg PO DAILY Vitals/I & O Vital Sign - Last 24 Hours 05/21/18 05/21/18 05/21/18 05/21/18 15:00 18:40 19:00 19:41 Temp 97.9 98.1 97.9 98.1 Pulse 62 70 Resp 18 18 B/P (MAP) 140/77 (98) 161/78 (105) Pulse Ox 100 99 100 O2 Delivery Room Air Room Air Room Air 05/21/18 05/21/18 05/22/18 05/22/18 20:09 23:00 01:51 03:00 Temp 98.1 99.1 98.1 99.1 Pulse 76 73 Resp 18 18 B/P (MAP) 154/70 (98) 129/78 (95) Pulse Ox 98 98 98 O2 Delivery Room Air Room Air Room Air Room Air 05/22/18 05/22/18 05/22/18 05/22/18 07:00 08:00 08:45 08:47 Temp 97.7 97.7 Pulse 73 73 Resp 18 20 B/P (MAP) 155/63 (93) 155/63 Pulse Ox 100 O2 Delivery Room Air Room Air Room Air 05/22/18 05/22/18 05/22/18 08:47 09:15 09:47 Resp 20 16 16 Pulse Ox 100 100 O2 Delivery Room Air Room Air Room Air Intake and Output 05/21/18 05/21/18 05/22/18 15:00 23:00 07:00 Intake Total 400 ml 960 ml Output Total 1000 ml Balance 400 ml -40 ml KATIA JUSTICE MD May 22, 2018 11:06
[2018-05-22] MEDS ORDERED: ONDANSETRON PF 4 MG/2 ML VIAL. IV PRN ×2 (11:15→17:15)
--- NOTE | 2018-05-22 12:37 | PDOC ---
SUBJECTIVE ROS States feeling better , family at bedside OBJECTIVE Vital Signs Vital Signs Date Time Temp Pulse Resp B/P (MAP) Pulse Ox O2 Delivery O2 Flow Rate FiO2 05/22/18 11:00 97.9 63 18 138/91 (107) 99 Room Air 97.9 I & 0 Intake and Output 05/22/18 07:00 Intake Total 1360 ml Output Total 1000 ml Balance 360 ml Intake Oral 1360 ml Output Urine Total 1000 ml # Voids 4 PHYSICAL EXAM Physical Exam GEN: NAD HEEN: OM Moist NECK: No JVD, CVS: RRR, HALEY + RESP: CTA, Non labored GI: Non Tender, Non Distended : No CVA tenderness, no Suprapubic Tenderness Skin no rash, scar Lt LE s/p vein harvesting Neuro- No gross deficit DIAGNOSIS/ASSESSMENT Assessment & Plan AGNIESZKA- ATN , Cr improving slowly, monitor has DM, HTN s/p CABG Clinically appears euvolemic Renal US normal , Ur Pr/Cr P Unknown baseline renal function , could have underlying CKD- DM, CAD, HTN Headache - neurology and ID Following Post LP Hypocalcemia- Corrected Mildly low Hypoalbuminemia- Ur Pr/Cr pending HTN- BP fair controlled DM- As per primary CAD CABG 6yrs back Discussed with Pt at bedside Problems: COMMENT/RELEVANT DATA Meds Current Medications Medications (Trade) Dose Ordered Sig/Biju Start Time Stop Time Status Last Admin Dose Admin Acetaminophen (Tylenol) 1,000 mg 1X ONCE 05/21/18 10:00 05/21/18 10:01 DC 05/21/18 11:10 1,000 MG Aspirin (Children'S Aspirin) 81 mg DAILY 05/20/18 19:00 05/22/18 08:46 81 MG Cefepime HCl (Maxipime) 2 gm Q12HR 05/21/18 21:00 05/22/18 09:00 2 GM Cefepime HCl 1 gm/ Dextrose 50 ml @ 100 mls/hr Q12HR 05/20/18 21:00 UNV Fentanyl Citrate (Fentanyl 2ml Vial) 50 mcg PRN Q3HRS PRN 05/20/18 17:45 05/22/18 08:45 50 MCG Lactobacillus Rhamnosus (Culturelle) 1 cap BID 05/21/18 21:00 05/22/18 08:46 1 CAP Lidocaine/Sodium Bicarbonate (Buffered Lidocaine 1%) 6 ml 1X ONCE 05/21/18 12:15 05/21/18 12:16 DC Metoprolol Tartrate (Lopressor) 25 mg DAILY 05/20/18 19:00 05/22/18 08:47 25 MG Morphine Sulfate (Morphine Sulfate) 4 mg PRN Q2HR PRN 05/20/18 13:00 05/21/18 12:59 DC Ondansetron HCl (Zofran) 4 mg PRN Q8HRS PRN 05/22/18 11:15 05/22/18 11:58 4 MG Oxycodone/ Acetaminophen (Percocet 5/325) 1 tab PRN Q6HRS PRN 05/21/18 09:30 05/22/18 08:47 1 TAB Sodium Chloride 1,000 ml @ 125 mls/hr Q8HRS 05/21/18 22:00 05/22/18 05:03 125 MLS/HR Sumatriptan Succinate (Imitrex) 6 mg 1X ONCE 05/20/18 13:00 05/20/18 13:01 DC 05/20/18 13:10 6 MG Topiramate (Topamax) 25 mg BID 05/20/18 21:00 05/22/18 08:47 25 MG Vancomycin HCl (Vanco Per Pharmacy) 1 each PRN DAILY PRN 05/21/18 15:00 05/21/18 16:36 1 EACH Vancomycin HCl (Vancomycin Trough Level) 1 each 1X ONCE 05/23/18 15:30 05/23/18 15:31 Vancomycin HCl 1.25 gm/Sodium Chloride 250 ml @ 167 mls/hr Q24H 05/22/18 16:00 Vancomycin HCl 2 gm/Sodium Chloride 500 ml @ 250 mls/hr 1X ONCE 05/21/18 15:30 05/21/18 17:29 DC 05/21/18 15:20 250 MLS/HR Lab Laboratory Tests Test 05/21/18 13:20 05/21/18 16:31 05/21/18 20:37 05/22/18 03:35 CSF Color Colorless CSF Clarity Clear CSF WBC 157 CSF RBC 2 CSF Mononuclear WBCs % 62 % CSF Polynuclear WBCs (%) 38 % CSF Glucose 59 mg/dL (37-70) CSF Total Protein 61.7 mg/dL (15.0-45.0) Glucose (Fingerstick) 113 mg/dL (70-99) 133 mg/dL (70-99) Sodium Level 135 mmol/L (136-145) Potassium Level 4.1 mmol/L (3.5-5.1) Chloride Level 108 mmol/L (98-107) Carbon Dioxide Level 16 mmol/L (21-32) Anion Gap 11 (6-14) Blood Urea Nitrogen 35 mg/dL (8-26) Creatinine 2.1 mg/dL (0.7-1.3) Estimated GFR (Cockcroft-Gault) 32.7 Glucose Level 119 mg/dL (70-99) Calcium Level 6.5 mg/dL (8.5-10.1) Test 05/22/18 07:44 05/22/18 11:41 Glucose (Fingerstick) 99 mg/dL (70-99) 106 mg/dL (70-99) Results All relevant outside records, renal labs, imaging studies, telemetry/EKG's were reviewed. LAUREANO BORGES MD May 22, 2018 12:37
[2018-05-22] MEDS: VANCOMYCIN PER PHARMACY MC PRN (13:29)
--- NOTE | 2018-05-22 14:30 | PDOC ---
Infectious Disease Note Subjective Subjective pt is feeling better, less headache ROS ROS no n//d/sob,,, vomited once Vital Sign Vital Signs Vital Signs Date Time Temp Pulse Resp B/P (MAP) Pulse Ox O2 Delivery O2 Flow Rate FiO2 05/22/18 11:00 97.9 63 18 138/91 (107) 99 Room Air 97.9 Physical Exam PHYSICAL EXAM GENERAL: Alert and oriented gentleman, not in distress. VITAL SIGNS: Stable HEENT: NAD. NECK: Supple, no JVP, no lymphadenopathy. LUNGS: Clear. HEART: S1, S2 regular. ABDOMEN: Benign. EXTREMITIES: No edema or cyanosis. SKIN: Unremarkable. The patient does not have any rash. NEUROLOGIC: The patient is neurologically intact. Kernig and Brudzinski signs are negative. Labs Lab Laboratory Tests Test 05/21/18 16:31 05/21/18 20:37 05/22/18 03:35 05/22/18 07:44 Glucose (Fingerstick) 113 mg/dL (70-99) 133 mg/dL (70-99) 99 mg/dL (70-99) Sodium Level 135 mmol/L (136-145) Potassium Level 4.1 mmol/L (3.5-5.1) Chloride Level 108 mmol/L (98-107) Carbon Dioxide Level 16 mmol/L (21-32) Anion Gap 11 (6-14) Blood Urea Nitrogen 35 mg/dL (8-26) Creatinine 2.1 mg/dL (0.7-1.3) Estimated GFR (Cockcroft-Gault) 32.7 Glucose Level 119 mg/dL (70-99) Calcium Level 6.5 mg/dL (8.5-10.1) Test 05/22/18 11:41 Glucose (Fingerstick) 106 mg/dL (70-99) Micro Microbiology 05/20/18 Blood Culture - Preliminary, Resulted NO GROWTH AFTER 1 DAY 05/21/18 CSF Gram Stain - Final, Complete CSF wbc 157 Objective Assessment Fever Headache Diarrhea DM Aseptic meningitis/viral Plan Plan of Care d/c antibiotics supportive care d/c when comfortable JIGAR PUCKETT MD May 22, 2018 14:30
--- NOTE | 2018-05-22 14:53 | PDOC ---
PROGRESS NOTES Chief Complaint Chief Complaint meningitis, bacterial, cx pending headache nausea History of Present Illness History of Present Illness feeling better headache now down to 4/10 from 6 has eaten a little , not OOB much Vitals Vitals Vital Signs Date Time Temp Pulse Resp B/P (MAP) Pulse Ox O2 Delivery O2 Flow Rate FiO2 05/22/18 11:00 97.9 63 18 138/91 (107) 99 Room Air 97.9 Physical Exam Physical Exam GENERAL: Alert and oriented gentleman, not in distress. VITAL SIGNS: Stable HEENT: NAD. NECK: Supple, no JVP, no lymphadenopathy. LUNGS: Clear. HEART: S1, S2 regular. ABDOMEN: Benign. EXTREMITIES: No edema or cyanosis. SKIN: Unremarkable. The patient does not have any rash. NEUROLOGIC: The patient is neurologically intact. Kernig and Brudzinski signs are negative. General: Alert, Oriented X3, Cooperative, mild distress Heart: Regular rate, Normal S2 Abdomen: Normal bowel sounds Skin: No rashes Labs LABS Laboratory Tests Test 05/21/18 16:31 05/21/18 20:37 05/22/18 03:35 05/22/18 07:44 Glucose (Fingerstick) 113 mg/dL (70-99) 133 mg/dL (70-99) 99 mg/dL (70-99) Sodium Level 135 mmol/L (136-145) Potassium Level 4.1 mmol/L (3.5-5.1) Chloride Level 108 mmol/L (98-107) Carbon Dioxide Level 16 mmol/L (21-32) Anion Gap 11 (6-14) Blood Urea Nitrogen 35 mg/dL (8-26) Creatinine 2.1 mg/dL (0.7-1.3) Estimated GFR (Cockcroft-Gault) 32.7 Glucose Level 119 mg/dL (70-99) Calcium Level 6.5 mg/dL (8.5-10.1) Test 05/22/18 11:41 Glucose (Fingerstick) 106 mg/dL (70-99) Assessment and Plan Assessmemt and Plan Problems Medical Problems: (1) Acute renal failure Status: Acute (2) Migraine Status: Acute Comment Review of Relevant I have reviewed the following items gordo (where applicable) has been applied. Labs Laboratory Tests Test 05/20/18 16:23 05/20/18 18:45 05/20/18 19:47 05/20/18 20:19 Glucose (Fingerstick) 117 mg/dL (70-99) 120 mg/dL (70-99) Erythrocyte Sedimentation Rate 57 (0-15) Prothrombin Time 13.8 SEC (11.7-14.0) Prothromb Time International Ratio 1.1 (0.8-1.1) C-Reactive Protein High Sensitivity 11.08 mg/L (0.00-3.00) Urine Collection Type Unknown Urine Color Yellow Urine Clarity Clear Urine pH 6.5 Urine Specific [place] 1.020 Urine Protein >=300 mg/dL (NEG-TRACE) Urine Glucose (UA) 250 mg/dL (NEG) Urine Ketones (Stick) Negative mg/dL (NEG) Urine Blood Small (NEG) Urine Nitrite Negative (NEG) Urine Bilirubin Negative (NEG) Urine Urobilinogen Dipstick 1.0 mg/dL (0.2 mg/dL) Urine Leukocyte Esterase Negative (NEG) Urine RBC 3-5 /HPF (0-2) Urine WBC 1-4 /HPF (0-4) Urine Squamous Epithelial Cells Few /LPF Urine Bacteria 0 /HPF (0-FEW) Urine Hyaline Casts Few /HPF Urine Mucus Slight /LPF Urine Opiates Screen Neg (NEG) Urine Methadone Screen Neg (NEG) Urine Barbiturates Neg (NEG) Urine Phencyclidine Screen Neg (NEG) Urine Amphetamine/Methamphetamine Neg (NEG) Urine Benzodiazepines Screen Neg (NEG) Urine Cocaine Screen Neg (NEG) Urine Cannabinoids Screen Neg (NEG) Urine Ethyl Alcohol Neg (NEG) Test 05/20/18 21:40 05/21/18 07:13 05/21/18 11:05 05/21/18 11:27 Lactic Acid Level 0.6 mmol/L (0.4-2.0) Glucose (Fingerstick) 71 mg/dL (70-99) 118 mg/dL (70-99) White Blood Count 21.6 x10^3/uL (4.0-11.0) Red Blood Count 3.83 x10^6/uL (4.30-5.70) Hemoglobin 11.3 g/dL (13.0-17.5) Hematocrit 34.0 % (39.0-53.0) Mean Corpuscular Volume 89 fL (79-100) Mean Corpuscular Hemoglobin 30 pg (25-35) Mean Corpuscular Hemoglobin Concent 33 g/dL (31-37) Red Cell Distribution Width 14.5 % (11.5-14.5) Platelet Count 228 x10^3/uL (140-400) Neutrophils (%) (Auto) 78 % (31-73) Lymphocytes (%) (Auto) 10 % (24-48) Monocytes (%) (Auto) 12 % (0-9) Eosinophils (%) (Auto) 0 % (0-3) Basophils (%) (Auto) 0 % (0-3) Neutrophils # (Auto) 16.8 x10^3uL (1.8-7.7) Lymphocytes # (Auto) 2.1 x10^3/uL (1.0-4.8) Monocytes # (Auto) 2.6 x10^3/uL (0.0-1.1) Eosinophils # (Auto) 0.0 x10^3/uL (0.0-0.7) Basophils # (Auto) 0.1 x10^3/uL (0.0-0.2) Sodium Level 135 mmol/L (136-145) Potassium Level 4.6 mmol/L (3.5-5.1) Chloride Level 108 mmol/L (98-107) Carbon Dioxide Level 19 mmol/L (21-32) Anion Gap 8 (6-14) Blood Urea Nitrogen 36 mg/dL (8-26) Creatinine 2.3 mg/dL (0.7-1.3) Estimated GFR (Cockcroft-Gault) 29.5 BUN/Creatinine Ratio 16 (6-20) Glucose Level 126 mg/dL (70-99) Calcium Level 6.6 mg/dL (8.5-10.1) Total Bilirubin 0.6 mg/dL (0.2-1.0) Aspartate Amino Transf (AST/SGOT) 18 U/L (15-37) Alanine Aminotransferase (ALT/SGPT) 16 U/L (16-63) Alkaline Phosphatase 59 U/L (46-116) Total Protein 5.8 g/dL (6.4-8.2) Albumin 1.8 g/dL (3.4-5.0) Albumin/Globulin Ratio 0.5 (1.0-1.7) Test 05/21/18 13:20 05/21/18 16:31 05/21/18 20:37 05/22/18 03:35 CSF Color Colorless CSF Clarity Clear CSF WBC 157 CSF RBC 2 CSF Mononuclear WBCs % 62 % CSF Polynuclear WBCs (%) 38 % CSF Glucose 59 mg/dL (37-70) CSF Total Protein 61.7 mg/dL (15.0-45.0) Glucose (Fingerstick) 113 mg/dL (70-99) 133 mg/dL (70-99) Sodium Level 135 mmol/L (136-145) Potassium Level 4.1 mmol/L (3.5-5.1) Chloride Level 108 mmol/L (98-107) Carbon Dioxide Level 16 mmol/L (21-32) Anion Gap 11 (6-14) Blood Urea Nitrogen 35 mg/dL (8-26) Creatinine 2.1 mg/dL (0.7-1.3) Estimated GFR (Cockcroft-Gault) 32.7 Glucose Level 119 mg/dL (70-99) Calcium Level 6.5 mg/dL (8.5-10.1) Test 05/22/18 07:44 05/22/18 11:41 Glucose (Fingerstick) 99 mg/dL (70-99) 106 mg/dL (70-99) Laboratory Tests Test 05/21/18 16:31 05/21/18 20:37 05/22/18 03:35 05/22/18 07:44 Glucose (Fingerstick) 113 mg/dL (70-99) 133 mg/dL (70-99) 99 mg/dL (70-99) Sodium Level 135 mmol/L (136-145) Potassium Level 4.1 mmol/L (3.5-5.1) Chloride Level 108 mmol/L (98-107) Carbon Dioxide Level 16 mmol/L (21-32) Anion Gap 11 (6-14) Blood Urea Nitrogen 35 mg/dL (8-26) Creatinine 2.1 mg/dL (0.7-1.3) Estimated GFR (Cockcroft-Gault) 32.7 Glucose Level 119 mg/dL (70-99) Calcium Level 6.5 mg/dL (8.5-10.1) Test 05/22/18 11:41 Glucose (Fingerstick) 106 mg/dL (70-99) Microbiology 05/20/18 Blood Culture - Preliminary, Resulted NO GROWTH AFTER 1 DAY 05/21/18 CSF Gram Stain - Final, Complete Medications Current Medications Fentanyl Citrate (Fentanyl 2ml Vial) 100 mcg STK-MED ONCE .ROUTE ; Start at 10:36; Stop 05/20/18 at 10:37; Status DC Ondansetron HCl (Zofran) 4 mg STK-MED ONCE .ROUTE ; Start 05/20/18 at 10:36; Stop 05/20/18 at 10:37; Status DC Sodium Chloride 1,000 ml @ 1,000 mls/hr 1X ONCE IV Last administered on at 13:04; Start 05/20/18 at 13:00; Stop 05/20/18 at 13:59; Status DC Sumatriptan Succinate (Imitrex) 6 mg 1X ONCE SQ Last administered on at 13:10; Start 05/20/18 at 13:00; Stop 05/20/18 at 13:01; Status DC Fentanyl Citrate (Fentanyl 2ml Vial) 50 mcg 1X ONCE IV Last administered on at 13:08; Start 05/20/18 at 13:00; Stop 05/20/18 at 13:01; Status DC Ondansetron HCl (Zofran) 4 mg PRN Q8HRS PRN IV NAUSEA/VOMITING; Start 05/20/18 at 13:00; Stop 05/21/18 at 12:59; Status DC Morphine Sulfate (Morphine Sulfate) 4 mg PRN Q2HR PRN IV PAIN; Start 05/20/18 at 13:00; Stop 05/21/18 at 12:59; Status DC Sodium Chloride 1,000 ml @ 250 mls/hr Q4H IV Last administered on 05/21/18at 09 :13; Start 05/20/18 at 12:49; Stop 05/21/18 at 12:48; Status DC Fentanyl Citrate (Fentanyl 2ml Vial) 50 mcg PRN Q3HRS PRN IV PAIN Last administered on 05/22/18at 08:45; Start 05/20/18 at 17:45 Topiramate (Topamax) 25 mg BID PO Last administered on 05/22/18at 08:47; Start 05/20/18 at 21:00 Metoprolol Tartrate (Lopressor) 25 mg DAILY PO Last administered on 05/22/18 08:47; Start 05/20/18 at 19:00 Aspirin (Children'S Aspirin) 81 mg DAILY PO Last administered on 05/22/18 08: 46; Start 05/20/18 at 19:00 Acetaminophen (Tylenol) 650 mg PRN Q6HRS PRN PO MILD PAIN / TEMP Last administered on 05/21/18 09:07; Start 05/20/18 at 19:30 Cefepime HCl 1 gm/ Dextrose 50 ml @ 100 mls/hr Q12HR IV ; Start 05/20/18 at 21: 00; Status UNV Cefepime HCl (Maxipime) 1 gm Q12HR IVP Last administered on 05/21/18at 09:09; Start 05/20/18 at 21:00; Stop 05/21/18 at 15:26; Status DC Acetaminophen (Tylenol) 1,000 mg 1X ONCE PO Last administered on 05/21/18at 11: 10; Start 05/21/18 at 10:00; Stop 05/21/18 at 10:01; Status DC Oxycodone/ Acetaminophen (Percocet 5/325) 1 tab PRN Q6HRS PRN PO MODERATE - SEVERE PAIN Last administered on 05/22/18at 08:47; Start 05/21/18 at 09:30 Lidocaine/Sodium Bicarbonate (Buffered Lidocaine 1%) 6 ml 1X ONCE INJ ; Start 05/21/18 at 12:15; Stop 05/21/18 at 12:16; Status DC Lactobacillus Rhamnosus (Culturelle) 1 cap BID PO Last administered on at 08:46; Start 05/21/18 at 21:00 Vancomycin HCl (Vanco Per Pharmacy) 1 each PRN DAILY PRN MC SEE COMMENTS Last administered on 05/22/18at 13:29; Start 05/21/18 at 15:00; Stop 05/22/18 at 14:28 ; Status DC Vancomycin HCl 2 gm/Sodium Chloride 500 ml @ 250 mls/hr 1X ONCE IV Last administered on 05/21/18 15:20; Start 05/21/18 at 15:30; Stop 05/21/18 at 17:29 ; Status DC Cefepime HCl (Maxipime) 2 gm Q12HR IVP Last administered on 8/23/18at 09:00; Start 05/21/18 at 21:00; Stop 05/22/18 at 14:28; Status DC Vancomycin HCl 1.25 gm/Sodium Chloride 250 ml @ 167 mls/hr Q24H IV ; Start at 16:00; Stop 05/22/18 at 16:00; Status DC Vancomycin HCl (Vancomycin Trough Level) 1 each 1X ONCE MC ; Start 05/23/18 at 15:30; Stop 05/23/18 at 15:30; Status DC Sodium Chloride 1,000 ml @ 125 mls/hr Q8H IV ; Start 05/21/18 at 18:15; Stop at 19:13; Status DC Sodium Chloride 1,000 ml @ 125 mls/hr Q8HRS IV Last administered on 05/22/18at 05:03; Start 05/21/18 at 22:00 Ondansetron HCl (Zofran) 4 mg PRN Q8HRS PRN IV NAUSEA/VOMITING Last administered on 05/22/18at 11:58; Start 05/22/18 at 11:15 Calcium Carbonate/ Glycine (Tums) 500 mg PRN AFTMEALHC PRN PO INDIGESTION; Start 05/22/18 at 14:30 Active Scripts Active Reported Aspirin 81 Mg Tab.chew 1 Tab PO DAILY Lisinopril 20 Mg Tablet 20 Mg PO DAILY Vitals/I & O Vital Sign - Last 24 Hours 05/21/18 05/21/18 05/21/18 05/21/18 15:00 18:40 19:00 19:41 Temp 97.9 98.1 97.9 98.1 Pulse 62 70 Resp 18 18 B/P (MAP) 140/77 (98) 161/78 (105) Pulse Ox 100 99 100 O2 Delivery Room Air Room Air Room Air 05/21/18 05/21/18 05/22/18 05/22/18 20:09 23:00 01:51 03:00 Temp 98.1 99.1 98.1 99.1 Pulse 76 73 Resp 18 18 B/P (MAP) 154/70 (98) 129/78 (95) Pulse Ox 98 98 98 O2 Delivery Room Air Room Air Room Air Room Air 05/22/18 05/22/18 05/22/18 05/22/18 07:00 08:00 08:45 08:47 Temp 97.7 97.7 Pulse 73 73 Resp 18 20 B/P (MAP) 155/63 (93) 155/63 Pulse Ox 100 O2 Delivery Room Air Room Air Room Air 05/22/18 05/22/18 05/22/18 05/22/18 08:47 09:15 09:47 11:00 Temp 97.9 97.9 Pulse 63 Resp 20 16 16 18 B/P (MAP) 138/91 (107) Pulse Ox 100 100 99 O2 Delivery Room Air Room Air Room Air Room Air Intake and Output 05/21/18 05/21/18 05/22/18 15:00 23:00 07:00 Intake Total 400 ml 960 ml Output Total 1000 ml Balance 400 ml -40 ml KATIA JUSTICE MD May 22, 2018 14:53
[2018-05-22] MEDS: ACETAMINOPHEN 325 MG TABLET. PO PRN (14:59)
[2018-05-22] MEDS: CALCIUM CARBONATE 500 MG TAB.CHEW PO PRN (14:59)
[2018-05-22 15:00] VITALS: BP 164/72
[2018-05-22] MEDS ORDERED: DOCUSATE SODIUM 100 MG CAPSULE. PO PRN (15:00)
[2018-05-22] MEDS ORDERED: POLYETHYLENE GLYCOL 3350 17 GM PACKET. PO PRN (15:00)
[2018-05-22] MEDS ORDERED: VANCOMYCIN 1.25 GM in IV NORMAL SALINE 250ML 250 ML IV SCH (16:00)
--- NOTE | 2018-05-22 17:08 | PDOC ---
PROGRESS NOTES Assessment Assessment Fever. Chills. Headaches. Viral meningitis or encephalitis? TB needs to be ruled out. Dizziness. Leukocytosis. Renal failure or AGNIESZKA. Nausea. Vomiting. DM. CAD. HTN. RECOMMENDATIONS/PLAN: Consulted ID. Keep good hydration. Lab: see orders. T-spot test. Treat medical diseases. CSF WBC: 157, poly 38%, mono 62%, protein 61.7, glucose 59. Cultures pending. HISTORY OF THE PRESENT ILLNESS: 58-y-old [place] origin male patient with Hx of CAD and HTN developed symptoms of fever, chills, headaches, nausea, vomiting for 2 days before coming to the ER of [facility]. His HCT was unremarkable. His WBC is 19.6. Past Medical History CAD, Diabetes-Type II, Hypertension Past Surgical History: "Open heart surgery" Family History HLD ALLERGY: Unknown MEDICATIONS: Refer to MAR SOCIAL HISTORY: Lives at home. Denies smoking, drinking, and illicit drug use. REVIEW OF SYSTEMS: Constitutional: Over weight. Head: No traumatic brain or head injury. Skin: No edema, or rash. Ear: No infection. Eyes: No vision loss or color blindness. Nose: No bleeding or purulent discharges. Hearing: No hearing decrease. Neck: No injury. Cardiac: HTN. Pulmonary: No COPD. GI: No GI ulcer, GI bleeding. Urinary/genital: No dysuria, incontinence, urinary retention. Endocrinologic: Diabetes Mellitus. Skeletomuscular: No muscular atrophy, deformity. Neurological: see HP. Psychiatric: Denies drug use/abuse. Otherwise, not [id number] review of systems. PHYSICAL EXAMINATION: General appearance is in acute distress. HEENT: Normocephalic and nontraumatic. Eyes, nose, ears, and throat are unremarkable. Neck is supple. No lymphadenopathy. No bruits are heard over the carotid artery. No crepitus. Cardiovascular: S1, S2, regular rate and rhythm. Pulmonary: Clear to auscultation bilaterally. Abdomen: Bowel sounds are positive. Abdomen is soft, nontender, and nondistended. Extremities: No rash, lesions, or edema. No restriction of range of motion NEUROLOGICAL EXAMINATION: Drowsiness, bur arousable. Oriented partially to time, place and person. PERRL. EOMI. Neck: no resistance. CN: no focal findings. Muscle tone: within normal. Muscle strength: 5 DTR: 2 Plantar reflex: Flexor response bilaterally Gait: not examined in bed. Sensory exam: no abnormal findings. No cerebellar signs elicited. F-T-N test accurate. Objective Objective Vital Signs Date Time Temp Pulse Resp B/P (MAP) Pulse Ox O2 Delivery O2 Flow Rate FiO2 05/22/18 15:00 96.4 68 19 164/72 (102) 100 Room Air 96.4 Intake and Output 05/22/18 07:00 Intake Total 1360 ml Output Total 1000 ml Balance 360 ml Intake Oral 1360 ml Output Urine Total 1000 ml # Voids 4 Vitals Signs Vitals VS - Last 72 Hours, by Label Date Time Temp Pulse Resp B/P (MAP) Pulse Ox O2 Delivery O2 Flow Rate FiO2 05/22/18 15:00 96.4 68 19 164/72 (102) 100 Room Air 96.4 05/22/18 11:00 97.9 63 18 138/91 (107) 99 Room Air 97.9 05/22/18 09:47 16 Room Air 05/22/18 09:15 16 100 Room Air 05/22/18 08:47 20 100 Room Air 05/22/18 08:47 73 155/63 05/22/18 08:45 20 Room Air 05/22/18 08:00 Room Air 05/22/18 07:00 97.7 73 18 155/63 (93) 100 Room Air 97.7 05/22/18 03:00 99.1 73 18 129/78 (95) 98 Room Air 99.1 05/22/18 01:51 98 Room Air 05/21/18 23:00 98.1 76 18 154/70 (98) 98 Room Air 98.1 05/21/18 20:09 Room Air 05/21/18 19:41 100 05/21/18 19:00 98.1 70 18 161/78 (105) 99 Room Air 98.1 05/21/18 18:40 Room Air 05/21/18 15:00 97.9 62 18 140/77 (98) 100 Room Air 97.9 05/21/18 11:00 98.7 70 16 148/64 (92) 98 Room Air 98.7 05/21/18 09:36 Room Air 05/21/18 09:07 77 147/64 05/21/18 08:00 Room Air 05/21/18 07:00 102.2 77 18 147/64 (91) 99 Room Air 102.2 Laboratory Laboratory Laboratory Tests Test 05/21/18 20:37 05/22/18 03:35 05/22/18 07:44 05/22/18 11:41 Glucose (Fingerstick) 133 mg/dL (70-99) 99 mg/dL (70-99) 106 mg/dL (70-99) Sodium Level 135 mmol/L (136-145) Potassium Level 4.1 mmol/L (3.5-5.1) Chloride Level 108 mmol/L (98-107) Carbon Dioxide Level 16 mmol/L (21-32) Anion Gap 11 (6-14) Blood Urea Nitrogen 35 mg/dL (8-26) Creatinine 2.1 mg/dL (0.7-1.3) Estimated GFR (Cockcroft-Gault) 32.7 Glucose Level 119 mg/dL (70-99) Calcium Level 6.5 mg/dL (8.5-10.1) Test 05/22/18 16:08 Glucose (Fingerstick) 119 mg/dL (70-99) Microbiology 05/20/18 Blood Culture - Preliminary, Resulted NO GROWTH AFTER 1 DAY 05/21/18 CSF Gram Stain - Final, Complete Medication Medications Current Medications Calcium Carbonate/ Glycine (Tums) 500 mg PRN AFTMEALHC PRN PO INDIGESTION Last administered on 05/22/18at 14:59; Start 05/22/18 at 14:30 Cefepime HCl (Maxipime) 2 gm Q12HR IVP Last administered on 05/22/18at 09:00; Start 05/21/18 at 21:00; Stop 05/22/18 at 14:28; Status DC Docusate Sodium (Colace) 100 mg PRN DAILY PRN PO CONSTIPATION; Start 05/22/18 at 15:00 Lactobacillus Rhamnosus (Culturelle) 1 cap BID PO Last administered on at 08:46; Start 05/21/18 at 21:00 Ondansetron HCl (Zofran) 4 mg PRN Q8HRS PRN IV NAUSEA/VOMITING Last administered on 05/22/18at 11:58; Start 05/22/18 at 11:15 Polyethylene Glycol (miraLAX PACKET) 17 gm PRN DAILY PRN PO CONSTIPATION; Start 05/22/18 at 15:00 Sodium Chloride 1,000 ml @ 125 mls/hr Q8H IV ; Start 05/21/18 at 18:15; Stop at 19:13; Status DC Sodium Chloride 1,000 ml @ 125 mls/hr Q8HRS IV Last administered on 05/22/18at 05:03; Start 05/21/18 at 22:00 Vancomycin HCl (Vancomycin Trough Level) 1 each 1X ONCE MC ; Start 05/23/18 at 15:30; Stop 05/23/18 at 15:30; Status DC Vancomycin HCl 1.25 gm/Sodium Chloride 250 ml @ 167 mls/hr Q24H IV ; Start at 16:00; Stop 05/22/18 at 16:00; Status DC Comment Review of Relevant I have reviewed the following items gordo (where applicable) has been applied. JOHANNA VALENTIN MD May 22, 2018 17:08
[2018-05-22] MEDS ORDERED: DEXAMETHASONE SOD PHOS 4 MG/ML VIAL IV ONE (17:15)
[2018-05-22] MEDS ORDERED: PROCHLORPERAZINE 5 MG TABLET. PO PRN (18:30)
[2018-05-22 19:00] VITALS: BP 150/67
[2018-05-22] MEDS: DEXAMETHASONE SOD PHOS 4 MG/ML VIAL IV SCH (20:55)
[2018-05-22 23:00] VITALS: BP 131/64
[2018-05-23 03:00] VITALS: BP 146/60
[2018-05-23] MEDS: IV NORMAL SALINE 1000ML BAG 1,000 ML IV SCH (03:02)
[2018-05-23 05:21] LABS: ALBUMIN 1.8 g/dL (3.4-5.0); CALCIUM 7.4 mg/dL (8.5-10.1); GFR 34.6; PHOSPHORUS 2.9 mg/dL (2.6-4.7)
[2018-05-23] MEDS ORDERED: DEXTROSE 50% 25 GM / 50ML DISP.SYRIN. IV PRN (06:00)
[2018-05-23] MEDS ORDERED: INSULIN GLARGINE 300 UNITS/3 ML INSULN.PEN. SQ ONE (06:00)
[2018-05-23 07:00] VITALS: BP 156/63
[2018-05-23] MEDS: ASPIRIN CHEWABLE 81 MG TABLET. PO SCH (08:00)
[2018-05-23] MEDS: CALCIUM CARBONATE 500 MG TAB.CHEW PO PRN ×2 (08:06→12:23)
[2018-05-23] MEDS: TOPIRAMATE 25 MG TABLET. PO SCH (08:06)
[2018-05-23] MEDS: DEXAMETHASONE SOD PHOS 4 MG/ML VIAL IV SCH (08:06)
[2018-05-23] MEDS: LACTOBACILLUS RHAMNOSUS GG 1 CAPSULE. PO SCH (08:06)
[2018-05-23] MEDS: METOPROLOL TART IMMED RELEASE 25 MG TABLET. PO SCH (08:06)
[2018-05-23] MEDS: INSULIN LISPRO 300 UNITS/3 ML INSULN.PEN. SQ SCH ×2 (08:13→12:31)
[2018-05-23] MEDS: oxyCODONE/APAP 5/325 1 TAB TABLET PO PRN (08:15)
--- NOTE | 2018-05-23 09:47 | PDOC ---
Infectious Disease Note Subjective Subjective pt is feeling better, less headache ROS ROS some n/v + Vital Sign Vital Signs Vital Signs Date Time Temp Pulse Resp B/P (MAP) Pulse Ox O2 Delivery O2 Flow Rate FiO2 05/23/18 09:39 Room Air 05/23/18 08:06 78 156/63 05/23/18 07:00 98.1 16 98 98.1 Physical Exam PHYSICAL EXAM GENERAL: Alert and oriented gentleman, not in distress. VITAL SIGNS: Stable HEENT: NAD. NECK: Supple, no JVP, no lymphadenopathy. LUNGS: Clear. HEART: S1, S2 regular. ABDOMEN: Benign. EXTREMITIES: No edema or cyanosis. SKIN: Unremarkable. The patient does not have any rash. NEUROLOGIC: The patient is neurologically intact. Kernig and Brudzinski signs are negative. Labs Lab Laboratory Tests Test 05/22/18 11:41 05/22/18 16:08 05/22/18 19:22 05/23/18 04:40 Glucose (Fingerstick) 106 mg/dL (70-99) 119 mg/dL (70-99) 113 mg/dL (70-99) Sodium Level 137 mmol/L (136-145) Potassium Level 4.0 mmol/L (3.5-5.1) Chloride Level 107 mmol/L (98-107) Carbon Dioxide Level 16 mmol/L (21-32) Anion Gap 14 (6-14) Blood Urea Nitrogen 37 mg/dL (8-26) Creatinine 2.0 mg/dL (0.7-1.3) Estimated GFR (Cockcroft-Gault) 34.6 Glucose Level 355 mg/dL (70-99) Calcium Level 7.4 mg/dL (8.5-10.1) Phosphorus Level 2.9 mg/dL (2.6-4.7) Albumin 1.8 g/dL (3.4-5.0) Test 05/23/18 07:28 Glucose (Fingerstick) 350 mg/dL (70-99) Micro Microbiology 05/20/18 Blood Culture - Preliminary, Resulted NO GROWTH AFTER 1 DAY 05/21/18 CSF Gram Stain - Final, Complete CSF wbc 157 Objective Assessment Fever Headache Diarrhea DM Aseptic meningitis/viral Plan Plan of Care supportive care d/c when comfortable JIGAR PUCKETT MD May 23, 2018 09:47
--- NOTE | 2018-05-23 10:01 | PDOC ---
SUBJECTIVE ROS States feeling better OBJECTIVE Vital Signs Vital Signs Date Time Temp Pulse Resp B/P (MAP) Pulse Ox O2 Delivery O2 Flow Rate FiO2 05/23/18 09:39 Room Air 05/23/18 08:06 78 156/63 05/23/18 07:00 98.1 16 98 98.1 I & 0 Intake and Output 05/23/18 07:00 Intake Total 1800 ml Balance 1800 ml Intake Oral 800 ml IV Total 1000 ml # Voids 4 PHYSICAL EXAM Physical Exam GEN: NAD HEEN: OM Moist NECK: No JVD, CVS: RRR, HALEY + RESP: CTA, Non labored GI: Non Tender, Non Distended : No CVA tenderness, no Suprapubic Tenderness Skin no rash, scar Lt LE s/p vein harvesting Neuro- No gross deficit DIAGNOSIS/ASSESSMENT Assessment & Plan AGNIESZKA- ATN , Cr improving slowly has DM, HTN s/p CABG Clinically appears euvolemic Renal US normal , Ur Pr/Cr P Unknown baseline renal function , could have underlying CKD- DM, CAD, HTN Headache - Aseptic meningitis neurology and ID Following Hypocalcemia- Corrected Mildly low Phos Normal Hypoalbuminemia- Ur Pr/Cr pending HTN- BP fair controlled DM- As per primary CAD CABG 6yrs back Discussed with Pt at bedside Problems: COMMENT/RELEVANT DATA Meds Current Medications Medications (Trade) Dose Ordered Sig/Biju Start Time Stop Time Status Last Admin Dose Admin Acetaminophen (Tylenol) 1,000 mg 1X ONCE 05/21/18 10:00 05/21/18 10:01 DC 05/21/18 11:10 1,000 MG Aspirin (Children'S Aspirin) 81 mg DAILY 05/20/18 19:00 05/23/18 08:00 81 MG Calcium Carbonate/ Glycine (Tums) 500 mg PRN AFTMEALHC PRN 05/22/18 14:30 05/23/18 08:06 500 MG Cefepime HCl (Maxipime) 2 gm Q12HR 05/21/18 21:00 05/22/18 14:28 DC 05/22/18 09:00 2 GM Cefepime HCl 1 gm/ Dextrose 50 ml @ 100 mls/hr Q12HR 05/20/18 21:00 UNV Dexamethasone Sodium Phosphate (Decadron) 4 mg BID 05/22/18 21:00 05/23/18 09:49 DC 05/23/18 08:06 4 MG Dextrose (Dextrose 50%-Water Syringe) 12.5 gm PRN Q15MIN PRN 05/23/18 06:00 Docusate Sodium (Colace) 100 mg PRN DAILY PRN 05/22/18 15:00 Fentanyl Citrate (Fentanyl 2ml Vial) 50 mcg PRN Q3HRS PRN 05/20/18 17:45 05/22/18 16:12 50 MCG Insulin Glargine (Lantus) 15 units 1X ONCE 05/23/18 06:00 05/23/18 06:02 DC 05/23/18 06:23 15 UNITS Insulin Human Lispro (HumaLOG) 0-9 UNITS TIDWMEALS 05/23/18 08:00 05/23/18 08:13 9 UNITS Lactobacillus Rhamnosus (Culturelle) 1 cap BID 05/21/18 21:00 05/23/18 08:06 1 CAP Lidocaine/Sodium Bicarbonate (Buffered Lidocaine 1%) 6 ml 1X ONCE 05/21/18 12:15 05/21/18 12:16 DC Metoprolol Tartrate (Lopressor) 25 mg DAILY 05/20/18 19:00 05/23/18 08:06 25 MG Morphine Sulfate (Morphine Sulfate) 4 mg PRN Q2HR PRN 05/20/18 13:00 05/21/18 12:59 DC Ondansetron HCl (Zofran) 4 mg PRN Q8HRS PRN 05/22/18 17:15 UNV Oxycodone/ Acetaminophen (Percocet 5/325) 1 tab PRN Q6HRS PRN 05/21/18 09:30 05/23/18 08:15 1 TAB Polyethylene Glycol (miraLAX PACKET) 17 gm PRN DAILY PRN 05/22/18 15:00 Prochlorperazine Maleate (Compazine) 10 mg PRN Q8HRS PRN 05/22/18 18:30 05/22/18 19:25 10 MG Sodium Chloride 1,000 ml @ 125 mls/hr Q8HRS 05/21/18 22:00 05/23/18 03:02 125 MLS/HR Sumatriptan Succinate (Imitrex) 6 mg 1X ONCE 05/20/18 13:00 05/20/18 13:01 DC 8/21/18 13:10 6 MG Topiramate (Topamax) 25 mg BID 05/20/18 21:00 05/23/18 08:06 25 MG Vancomycin HCl (Vanco Per Pharmacy) 1 each PRN DAILY PRN 05/21/18 15:00 05/22/18 14:28 DC 05/22/18 13:29 1 EACH Vancomycin HCl (Vancomycin Trough Level) 1 each 1X ONCE 05/23/18 15:30 05/23/18 15:30 DC Vancomycin HCl 1.25 gm/Sodium Chloride 250 ml @ 167 mls/hr Q24H 05/22/18 16:00 05/22/18 16:00 DC Vancomycin HCl 2 gm/Sodium Chloride 500 ml @ 250 mls/hr 1X ONCE 05/21/18 15:30 05/21/18 17:29 DC 05/21/18 15:20 250 MLS/HR Lab Laboratory Tests Test 05/22/18 11:41 05/22/18 16:08 05/22/18 19:22 05/23/18 04:40 Glucose (Fingerstick) 106 mg/dL (70-99) 119 mg/dL (70-99) 113 mg/dL (70-99) Sodium Level 137 mmol/L (136-145) Potassium Level 4.0 mmol/L (3.5-5.1) Chloride Level 107 mmol/L (98-107) Carbon Dioxide Level 16 mmol/L (21-32) Anion Gap 14 (6-14) Blood Urea Nitrogen 37 mg/dL (8-26) Creatinine 2.0 mg/dL (0.7-1.3) Estimated GFR (Cockcroft-Gault) 34.6 Glucose Level 355 mg/dL (70-99) Calcium Level 7.4 mg/dL (8.5-10.1) Phosphorus Level 2.9 mg/dL (2.6-4.7) Albumin 1.8 g/dL (3.4-5.0) Test 05/23/18 07:28 Glucose (Fingerstick) 350 mg/dL (70-99) Results All relevant outside records, renal labs, imaging studies, telemetry/EKG's were reviewed. LAUREANO BORGES MD May 23, 2018 10:01
[2018-05-23 11:41] VITALS: BP 179/72
--- NOTE | 2018-05-23 11:46 | PDOC ---
PROGRESS NOTES Chief Complaint Chief Complaint heart burn History of Present Illness History of Present Illness Vitals Vitals Vital Signs Date Time Temp Pulse Resp B/P (MAP) Pulse Ox O2 Delivery O2 Flow Rate FiO2 05/23/18 11:41 97.5 71 16 179/72 (107) 99 Room Air 97.5 Physical Exam Physical Exam GENERAL: Alert and oriented , not in distress. VITAL SIGNS: Stable HEENT: NAD. NECK: Supple, no JVP, no lymphadenopathy. LUNGS: Clear. HEART: S1, S2 regular. ABDOMEN: Benign. EXTREMITIES: No edema or cyanosis. SKIN: Unremarkable. The patient does not have any rash. NEUROLOGIC: alert and oriented, neck supple General: Alert, Oriented X3, Cooperative, mild distress Heart: Regular rate, Normal S2 Abdomen: Normal bowel sounds Skin: No rashes Labs LABS Laboratory Tests Test 05/22/18 16:08 05/22/18 19:22 05/23/18 04:40 05/23/18 07:28 Glucose (Fingerstick) 119 mg/dL (70-99) 113 mg/dL (70-99) 350 mg/dL (70-99) Sodium Level 137 mmol/L (136-145) Potassium Level 4.0 mmol/L (3.5-5.1) Chloride Level 107 mmol/L (98-107) Carbon Dioxide Level 16 mmol/L (21-32) Anion Gap 14 (6-14) Blood Urea Nitrogen 37 mg/dL (8-26) Creatinine 2.0 mg/dL (0.7-1.3) Estimated GFR (Cockcroft-Gault) 34.6 Glucose Level 355 mg/dL (70-99) Calcium Level 7.4 mg/dL (8.5-10.1) Phosphorus Level 2.9 mg/dL (2.6-4.7) Albumin 1.8 g/dL (3.4-5.0) Test 05/23/18 11:03 Glucose (Fingerstick) 346 mg/dL (70-99) Assessment and Plan Assessmemt and Plan Problems Medical Problems: lisa on ckd viral meningitis htn dm2 heart burn, gerd plan: ppi reviewed ID, neuro, nephro okay for disposition follow consults outpatient discussed educated Comment Review of Relevant I have reviewed the following items gordo (where applicable) has been applied. Labs Laboratory Tests Test 05/21/18 13:20 05/21/18 16:31 05/21/18 20:37 05/22/18 03:35 CSF Color Colorless CSF Clarity Clear CSF WBC 157 CSF RBC 2 CSF Mononuclear WBCs % 62 % CSF Polynuclear WBCs (%) 38 % CSF Glucose 59 mg/dL (37-70) CSF Total Protein 61.7 mg/dL (15.0-45.0) Glucose (Fingerstick) 113 mg/dL (70-99) 133 mg/dL (70-99) Sodium Level 135 mmol/L (136-145) Potassium Level 4.1 mmol/L (3.5-5.1) Chloride Level 108 mmol/L (98-107) Carbon Dioxide Level 16 mmol/L (21-32) Anion Gap 11 (6-14) Blood Urea Nitrogen 35 mg/dL (8-26) Creatinine 2.1 mg/dL (0.7-1.3) Estimated GFR (Cockcroft-Gault) 32.7 Glucose Level 119 mg/dL (70-99) Calcium Level 6.5 mg/dL (8.5-10.1) Test 05/22/18 07:44 05/22/18 11:41 05/22/18 16:08 05/22/18 19:22 Glucose (Fingerstick) 99 mg/dL (70-99) 106 mg/dL (70-99) 119 mg/dL (70-99) 113 mg/dL (70-99) Test 05/23/18 04:40 05/23/18 07:28 05/23/18 11:03 Sodium Level 137 mmol/L (136-145) Potassium Level 4.0 mmol/L (3.5-5.1) Chloride Level 107 mmol/L (98-107) Carbon Dioxide Level 16 mmol/L (21-32) Anion Gap 14 (6-14) Blood Urea Nitrogen 37 mg/dL (8-26) Creatinine 2.0 mg/dL (0.7-1.3) Estimated GFR (Cockcroft-Gault) 34.6 Glucose Level 355 mg/dL (70-99) Calcium Level 7.4 mg/dL (8.5-10.1) Phosphorus Level 2.9 mg/dL (2.6-4.7) Albumin 1.8 g/dL (3.4-5.0) Glucose (Fingerstick) 350 mg/dL (70-99) 346 mg/dL (70-99) Laboratory Tests Test 05/22/18 16:08 05/22/18 19:22 05/23/18 04:40 05/23/18 07:28 Glucose (Fingerstick) 119 mg/dL (70-99) 113 mg/dL (70-99) 350 mg/dL (70-99) Sodium Level 137 mmol/L (136-145) Potassium Level 4.0 mmol/L (3.5-5.1) Chloride Level 107 mmol/L (98-107) Carbon Dioxide Level 16 mmol/L (21-32) Anion Gap 14 (6-14) Blood Urea Nitrogen 37 mg/dL (8-26) Creatinine 2.0 mg/dL (0.7-1.3) Estimated GFR (Cockcroft-Gault) 34.6 Glucose Level 355 mg/dL (70-99) Calcium Level 7.4 mg/dL (8.5-10.1) Phosphorus Level 2.9 mg/dL (2.6-4.7) Albumin 1.8 g/dL (3.4-5.0) Test 05/23/18 11:03 Glucose (Fingerstick) 346 mg/dL (70-99) Microbiology 05/20/18 Blood Culture - Preliminary, Resulted NO GROWTH AFTER 2 DAYS 05/21/18 CSF Gram Stain - Final, Complete Medications Current Medications Fentanyl Citrate (Fentanyl 2ml Vial) 100 mcg STK-MED ONCE .ROUTE ; Start at 10:36; Stop 05/20/18 at 10:37; Status DC Ondansetron HCl (Zofran) 4 mg STK-MED ONCE .ROUTE ; Start 05/20/18 at 10:36; Stop 05/20/18 at 10:37; Status DC Sodium Chloride 1,000 ml @ 1,000 mls/hr 1X ONCE IV Last administered on at 13:04; Start 05/20/18 at 13:00; Stop 05/20/18 at 13:59; Status DC Sumatriptan Succinate (Imitrex) 6 mg 1X ONCE SQ Last administered on at 13:10; Start 05/20/18 at 13:00; Stop 05/20/18 at 13:01; Status DC Fentanyl Citrate (Fentanyl 2ml Vial) 50 mcg 1X ONCE IV Last administered on at 13:08; Start 05/20/18 at 13:00; Stop 05/20/18 at 13:01; Status DC Ondansetron HCl (Zofran) 4 mg PRN Q8HRS PRN IV NAUSEA/VOMITING; Start 05/20/18 at 13:00; Stop 05/21/18 at 12:59; Status DC Morphine Sulfate (Morphine Sulfate) 4 mg PRN Q2HR PRN IV PAIN; Start 05/20/18 at 13:00; Stop 05/21/18 at 12:59; Status DC Sodium Chloride 1,000 ml @ 250 mls/hr Q4H IV Last administered on 05/21/18at 09 :13; Start 05/20/18 at 12:49; Stop 05/21/18 at 12:48; Status DC Fentanyl Citrate (Fentanyl 2ml Vial) 50 mcg PRN Q3HRS PRN IV PAIN Last administered on 05/22/18at 16:12; Start 05/20/18 at 17:45 Topiramate (Topamax) 25 mg BID PO Last administered on 05/23/18 08:06; Start 05/20/18 at 21:00 Metoprolol Tartrate (Lopressor) 25 mg DAILY PO Last administered on 05/23/18 08:06; Start 05/20/18 at 19:00 Aspirin (Children'S Aspirin) 81 mg DAILY PO Last administered on 05/23/18at 08: 00; Start 05/20/18 at 19:00 Acetaminophen (Tylenol) 650 mg PRN Q6HRS PRN PO MILD PAIN / TEMP Last administered on 05/22/18at 14:59; Start 05/20/18 at 19:30 Cefepime HCl 1 gm/ Dextrose 50 ml @ 100 mls/hr Q12HR IV ; Start 05/20/18 at 21: 00; Status UNV Cefepime HCl (Maxipime) 1 gm Q12HR IVP Last administered on 05/21/18at 09:09; Start 05/20/18 at 21:00; Stop 05/21/18 at 15:26; Status DC Acetaminophen (Tylenol) 1,000 mg 1X ONCE PO Last administered on 05/21/18at 11: 10; Start 05/21/18 at 10:00; Stop 05/21/18 at 10:01; Status DC Oxycodone/ Acetaminophen (Percocet 5/325) 1 tab PRN Q6HRS PRN PO MODERATE - SEVERE PAIN Last administered on 05/23/18at 08:15; Start 05/21/18 at 09:30 Lidocaine/Sodium Bicarbonate (Buffered Lidocaine 1%) 6 ml 1X ONCE INJ ; Start 05/21/18 at 12:15; Stop 05/21/18 at 12:16; Status DC Lactobacillus Rhamnosus (Culturelle) 1 cap BID PO Last administered on at 08:06; Start 05/21/18 at 21:00 Vancomycin HCl (Vanco Per Pharmacy) 1 each PRN DAILY PRN MC SEE COMMENTS Last administered on 05/22/18at 13:29; Start 05/21/18 at 15:00; Stop 05/22/18 at 14:28 ; Status DC Vancomycin HCl 2 gm/Sodium Chloride 500 ml @ 250 mls/hr 1X ONCE IV Last administered on 05/21/18at 15:20; Start 05/21/18 at 15:30; Stop 05/21/18 at 17:29 ; Status DC Cefepime HCl (Maxipime) 2 gm Q12HR IVP Last administered on 05/22/18at 09:00; Start 05/21/18 at 21:00; Stop 05/22/18 at 14:28; Status DC Vancomycin HCl 1.25 gm/Sodium Chloride 250 ml @ 167 mls/hr Q24H IV ; Start at 16:00; Stop 05/22/18 at 16:00; Status DC Vancomycin HCl (Vancomycin Trough Level) 1 each 1X ONCE MC ; Start 05/23/18 at 15:30; Stop 05/23/18 at 15:30; Status DC Sodium Chloride 1,000 ml @ 125 mls/hr Q8H IV ; Start 05/21/18 at 18:15; Stop at 19:13; Status DC Sodium Chloride 1,000 ml @ 125 mls/hr Q8HRS IV Last administered on 05/23/18at 03:02; Start 05/21/18 at 22:00 Ondansetron HCl (Zofran) 4 mg PRN Q8HRS PRN IV NAUSEA/VOMITING Last administered on 05/22/18at 11:58; Start 05/22/18 at 11:15 Calcium Carbonate/ Glycine (Tums) 500 mg PRN AFTMEALHC PRN PO INDIGESTION Last administered on 05/23/18 08:06; Start 05/22/18 at 14:30 Docusate Sodium (Colace) 100 mg PRN DAILY PRN PO CONSTIPATION; Start 05/22/18 at 15:00 Polyethylene Glycol (miraLAX PACKET) 17 gm PRN DAILY PRN PO CONSTIPATION; Start 05/22/18 at 15:00 Ondansetron HCl (Zofran) 4 mg PRN Q8HRS PRN IV NAUSEA/VOMITING; Start 05/22/18 at 17:15; Status UNV Dexamethasone Sodium Phosphate (Decadron) 4 mg 1X ONCE IV Last administered on 05/22/18at 18:27; Start 05/22/18 at 17:15; Stop 05/22/18 at 17:20; Status DC Dexamethasone Sodium Phosphate (Decadron) 4 mg BID IV Last administered on 05/23at 08:06; Start 05/22/18 at 21:00; Stop 05/23/18 at 09:49; Status DC Prochlorperazine Maleate (Compazine) 10 mg PRN Q8HRS PRN PO NAUSEA/VOMITING Last administered on 05/22/18at 19:25; Start 05/22/18 at 18:30 Insulin Glargine (Lantus) 15 units 1X ONCE SQ Last administered on 05/23/18at 06:23; Start 05/23/18 at 06:00; Stop 05/23/18 at 06:02; Status DC Insulin Human Lispro (HumaLOG) 0-9 UNITS TIDWMEALS SQ Last administered on 05/23at 08:13; Start 05/23/18 at 08:00 Dextrose (Dextrose 50%-Water Syringe) 12.5 gm PRN Q15MIN PRN IV SEE COMMENTS; Start 05/23/18 at 06:00 Active Scripts Active Reported Aspirin 81 Mg Tab.chew 1 Tab PO DAILY Lisinopril 20 Mg Tablet 20 Mg PO DAILY Vitals/I & O Vital Sign - Last 24 Hours 05/22/18 05/22/18 05/22/18 05/22/18 15:00 16:12 16:42 19:00 Temp 96.4 97.5 96.4 97.5 Pulse 68 72 Resp 19 20 19 B/P (MAP) 164/72 (102) 150/67 (94) Pulse Ox 100 100 99 O2 Delivery Room Air Room Air Room Air Room Air 05/22/18 05/22/18 05/23/18 05/23/18 20:04 23:00 03:00 07:00 Temp 97.5 97.5 98.1 97.5 97.5 98.1 Pulse 70 74 78 Resp 19 19 16 B/P (MAP) 131/64 (86) 146/60 (88) 156/63 (94) Pulse Ox 98 98 98 O2 Delivery Room Air Room Air Room Air Room Air 05/23/18 05/23/18 05/23/18 05/23/18 08:00 08:06 08:15 09:39 Pulse 78 B/P (MAP) 156/63 O2 Delivery Room Air Room Air Room Air 05/23/18 11:41 Temp 97.5 97.5 Pulse 71 Resp 16 B/P (MAP) 179/72 (107) Pulse Ox 99 O2 Delivery Room Air Intake and Output 05/22/18 05/22/18 05/23/18 15:00 23:00 07:00 Intake Total 400 ml 400 ml 1000 ml Balance 400 ml 400 ml 1000 ml RASHID FLORES MD May 23, 2018 11:46
--- NOTE | 2018-05-23 11:47 | DISCH ---
DISCHARGE INSTRUCTIONS Condition on Discharge Condition on Discharge: Stable Activity After Discharge Activity Instructions for Disc: No restrictions Diet after Discharge Diet after Discharge: Cardiac Contacting the DR. after DC Call your doctor for: Concerns you may have RASHID FLORES MD May 23, 2018 11:47
--- NOTE | 2018-05-23 11:52 | PDOC3 ---
Discharge Summary Visit Information Final Diagnosis Problems Medical Problems: (1) Acute renal failure Status: Acute (2) Migraine Status: Acute Brief Hospital Course Allergies Allergies Coded Allergies Type Severity Reaction Last Updated Verified No Known Drug Allergies 05/20/18 No Vital Signs Vital Signs Date Time Temp Pulse Resp B/P (MAP) Pulse Ox O2 Delivery O2 Flow Rate FiO2 05/23/18 11:41 97.5 71 16 179/72 (107) 99 Room Air 97.5 Lab Results Laboratory Tests Test 05/21/18 13:20 05/21/18 16:31 05/21/18 20:37 05/22/18 03:35 CSF Color Colorless CSF Clarity Clear CSF WBC 157 CSF RBC 2 CSF Mononuclear WBCs % 62 % CSF Polynuclear WBCs (%) 38 % CSF Glucose 59 mg/dL (37-70) CSF Total Protein 61.7 mg/dL (15.0-45.0) Glucose (Fingerstick) 113 mg/dL (70-99) 133 mg/dL (70-99) Sodium Level 135 mmol/L (136-145) Potassium Level 4.1 mmol/L (3.5-5.1) Chloride Level 108 mmol/L (98-107) Carbon Dioxide Level 16 mmol/L (21-32) Anion Gap 11 (6-14) Blood Urea Nitrogen 35 mg/dL (8-26) Creatinine 2.1 mg/dL (0.7-1.3) Estimated GFR (Cockcroft-Gault) 32.7 Glucose Level 119 mg/dL (70-99) Calcium Level 6.5 mg/dL (8.5-10.1) Test 05/22/18 07:44 05/22/18 11:41 05/22/18 16:08 05/22/18 19:22 Glucose (Fingerstick) 99 mg/dL (70-99) 106 mg/dL (70-99) 119 mg/dL (70-99) 113 mg/dL (70-99) Test 05/23/18 04:40 05/23/18 07:28 05/23/18 11:03 Sodium Level 137 mmol/L (136-145) Potassium Level 4.0 mmol/L (3.5-5.1) Chloride Level 107 mmol/L (98-107) Carbon Dioxide Level 16 mmol/L (21-32) Anion Gap 14 (6-14) Blood Urea Nitrogen 37 mg/dL (8-26) Creatinine 2.0 mg/dL (0.7-1.3) Estimated GFR (Cockcroft-Gault) 34.6 Glucose Level 355 mg/dL (70-99) Calcium Level 7.4 mg/dL (8.5-10.1) Phosphorus Level 2.9 mg/dL (2.6-4.7) Albumin 1.8 g/dL (3.4-5.0) Glucose (Fingerstick) 350 mg/dL (70-99) 346 mg/dL (70-99) Laboratory Tests Test 05/22/18 16:08 05/22/18 19:22 05/23/18 04:40 05/23/18 07:28 Glucose (Fingerstick) 119 mg/dL (70-99) 113 mg/dL (70-99) 350 mg/dL (70-99) Sodium Level 137 mmol/L (136-145) Potassium Level 4.0 mmol/L (3.5-5.1) Chloride Level 107 mmol/L (98-107) Carbon Dioxide Level 16 mmol/L (21-32) Anion Gap 14 (6-14) Blood Urea Nitrogen 37 mg/dL (8-26) Creatinine 2.0 mg/dL (0.7-1.3) Estimated GFR (Cockcroft-Gault) 34.6 Glucose Level 355 mg/dL (70-99) Calcium Level 7.4 mg/dL (8.5-10.1) Phosphorus Level 2.9 mg/dL (2.6-4.7) Albumin 1.8 g/dL (3.4-5.0) Test 05/23/18 11:03 Glucose (Fingerstick) 346 mg/dL (70-99) Brief Hospital Course Mr. Mahmood is a 58 old presented with viral meningitis, dehydration, renal failure, improved, concern for migraine as well, cleared by consults, planned to be discharged with an advice to follow up with consultants outpatient discharge time >32 min Discharge Information Condition at Discharge: Improved Follow Up: Weeks Disposition/Orders: D/C to Home Scheduled Aspirin (Aspirin) 81 Mg Tab.chew, 1 TAB PO DAILY, #30 Ref 3 (Reported) Entered as Reported by: VERENICE ALTMAN on 05/20/181514 Last Action: Continued on 05/20/181840 by DAWSON CISNEROS MD Lisinopril (Lisinopril) 20 Mg Tablet, 20 MG PO DAILY for FOR HYPERTENSION, #30 Ref 0 (Reported) Entered as Reported by: VERENICE ALTMAN on 05/20/181514 Last Action: HELD on 05/20/181840 by MD MARK FISCHER ANIL K MD May 23, 2018 11:52
[2018-05-23] MEDS ORDERED: PANTOPRAZOLE 40 MG TABLET.DR. PO ONE (12:00)
--- NOTE | 2018-05-23 15:13 | PDOC ---
PROGRESS NOTES Assessment Assessment Fever. Chills. Headaches. Viral meningitis or encephalitis? TB needs to be ruled out. Dizziness. Leukocytosis. Renal failure or AGNIESZKA. Nausea. Vomiting. DM. CAD. HTN. RECOMMENDATIONS/PLAN: Per ID treatment. Keep good hydration. T-spot test. Treat medical diseases. CSF WBC: 157, poly 38%, mono 62%, protein 61.7, glucose 59. Cultures pending. HISTORY OF THE PRESENT ILLNESS: 58-y-old [place] origin male patient with Hx of CAD and HTN developed symptoms of fever, chills, headaches, nausea, vomiting for 2 days before coming to the ER of [facility]. His HCT was unremarkable. His WBC is 19.6. Past Medical History CAD, Diabetes-Type II, Hypertension Past Surgical History: "Open heart surgery" Family History HLD ALLERGY: Unknown MEDICATIONS: Refer to MAR SOCIAL HISTORY: Lives at home. Denies smoking, drinking, and illicit drug use. REVIEW OF SYSTEMS: Constitutional: Over weight. Head: No traumatic brain or head injury. Skin: No edema, or rash. Ear: No infection. Eyes: No vision loss or color blindness. Nose: No bleeding or purulent discharges. Hearing: No hearing decrease. Neck: No injury. Cardiac: HTN. Pulmonary: No COPD. GI: No GI ulcer, GI bleeding. Urinary/genital: No dysuria, incontinence, urinary retention. Endocrinologic: Diabetes Mellitus. Skeletomuscular: No muscular atrophy, deformity. Neurological: see HP. Psychiatric: Denies drug use/abuse. Otherwise, not [id number] review of systems. PHYSICAL EXAMINATION: General appearance is in no acute distress. HEENT: Normocephalic and nontraumatic. Eyes, nose, ears, and throat are unremarkable. Neck is supple. No lymphadenopathy. No bruits are heard over the carotid artery. No crepitus. Cardiovascular: S1, S2, regular rate and rhythm. Pulmonary: Clear to auscultation bilaterally. Abdomen: Bowel sounds are positive. Abdomen is soft, nontender, and nondistended. Extremities: No rash, lesions, or edema. No restriction of range of motion NEUROLOGICAL EXAMINATION: Drowsiness, bur arousable. Oriented partially to time, place and person. PERRL. EOMI. Neck: no resistance. CN: no focal findings. Muscle tone: within normal. Muscle strength: 5 DTR: 2 Plantar reflex: Flexor response bilaterally Gait: not examined in bed. Sensory exam: no abnormal findings. No cerebellar signs elicited. F-T-N test accurate. Objective Objective Vital Signs Date Time Temp Pulse Resp B/P (MAP) Pulse Ox O2 Delivery O2 Flow Rate FiO2 05/23/18 11:41 97.5 71 16 179/72 (107) 99 Room Air 97.5 Intake and Output 05/23/18 07:00 Intake Total 1800 ml Balance 1800 ml Intake Oral 800 ml IV Total 1000 ml # Voids 4 Vitals Signs Vitals VS - Last 72 Hours, by Label Date Time Temp Pulse Resp B/P (MAP) Pulse Ox O2 Delivery O2 Flow Rate FiO2 05/23/18 11:41 97.5 71 16 179/72 (107) 99 Room Air 97.5 05/23/18 09:39 Room Air 05/23/18 08:15 Room Air 05/23/18 08:06 78 156/63 05/23/18 08:00 Room Air 05/23/18 07:00 98.1 78 16 156/63 (94) 98 Room Air 98.1 05/23/18 03:00 97.5 74 19 146/60 (88) 98 Room Air 97.5 05/22/18 23:00 97.5 70 19 131/64 (86) 98 Room Air 97.5 05/22/18 20:04 Room Air 05/22/18 19:00 97.5 72 19 150/67 (94) 99 Room Air 97.5 05/22/18 16:42 20 100 Room Air 05/22/18 16:12 Room Air 05/22/18 15:00 96.4 68 19 164/72 (102) 100 Room Air 96.4 05/22/18 11:00 97.9 63 18 138/91 (107) 99 Room Air 97.9 05/22/18 09:47 16 05/22/18 08:47 20 100 Room Air 05/22/18 08:47 73 155/63 05/22/18 08:45 20 Room Air 05/22/18 08:00 Room Air 05/22/18 07:00 97.7 73 18 155/63 (93) 100 Room Air 97.7 Laboratory Laboratory Laboratory Tests Test 05/22/18 16:08 05/22/18 19:22 05/23/18 04:40 05/23/18 07:28 Glucose (Fingerstick) 119 mg/dL (70-99) 113 mg/dL (70-99) 350 mg/dL (70-99) Sodium Level 137 mmol/L (136-145) Potassium Level 4.0 mmol/L (3.5-5.1) Chloride Level 107 mmol/L (98-107) Carbon Dioxide Level 16 mmol/L (21-32) Anion Gap 14 (6-14) Blood Urea Nitrogen 37 mg/dL (8-26) Creatinine 2.0 mg/dL (0.7-1.3) Estimated GFR (Cockcroft-Gault) 34.6 Glucose Level 355 mg/dL (70-99) Calcium Level 7.4 mg/dL (8.5-10.1) Phosphorus Level 2.9 mg/dL (2.6-4.7) Albumin 1.8 g/dL (3.4-5.0) Test 05/23/18 11:03 Glucose (Fingerstick) 346 mg/dL (70-99) Microbiology 05/20/18 Blood Culture - Preliminary, Resulted NO GROWTH AFTER 2 DAYS 05/21/18 CSF Gram Stain - Final, Complete Medication Medications Current Medications Dexamethasone Sodium Phosphate (Decadron) 4 mg 1X ONCE IV Last administered on 05/22/18at 18:27; Start 05/22/18 at 17:15; Stop 05/22/18 at 17:20; Status DC Dexamethasone Sodium Phosphate (Decadron) 4 mg BID IV Last administered on 05/23at 08:06; Start 05/22/18 at 21:00; Stop 05/23/18 at 09:49; Status DC Dextrose (Dextrose 50%-Water Syringe) 12.5 gm PRN Q15MIN PRN IV SEE COMMENTS; Start 05/23/18 at 06:00 Insulin Glargine (Lantus) 15 units 1X ONCE SQ Last administered on 05/23/18at 06:23; Start 05/23/18 at 06:00; Stop 05/23/18 at 06:02; Status DC Insulin Human Lispro (HumaLOG) 0-9 UNITS TIDWMEALS SQ Last administered on 05/23at 12:31; Start 05/23/18 at 08:00 Ondansetron HCl (Zofran) 4 mg PRN Q8HRS PRN IV NAUSEA/VOMITING; Start 05/22/18 at 17:15; Status UNV Pantoprazole Sodium (Protonix) 40 mg 1X ONCE PO Last administered on at 12:22; Start 05/23/18 at 12:00; Stop 05/23/18 at 12:01; Status DC Pantoprazole Sodium (Protonix) 40 mg DAILYAC PO ; Start 05/24/18 at 07:30 Prochlorperazine Maleate (Compazine) 10 mg PRN Q8HRS PRN PO NAUSEA/VOMITING Last administered on 05/22/18at 19:25; Start 05/22/18 at 18:30 Vancomycin HCl (Vancomycin Trough Level) 1 each 1X ONCE MC ; Start 05/23/18 at 15:30; Stop 05/23/18 at 15:30; Status DC Vancomycin HCl 1.25 gm/Sodium Chloride 250 ml @ 167 mls/hr Q24H IV ; Start at 16:00; Stop 05/22/18 at 16:00; Status DC Comment Review of Relevant I have reviewed the following items gordo (where applicable) has been applied. JOHANNA VALENTIN MD May 23, 2018 15:13
[2018-05-23 15:49] VITALS: BP 142/71
[2018-05-24] MEDS ORDERED: PANTOPRAZOLE 40 MG TABLET.DR. PO SCH (07:30)
[2018-05-24 22:11] LABS: HERPES SIMPLEX TYPE 1 Negative (Negative); HERPES SIMPLEX TYPE 2 Negative (Negative)
== END 2018-05-23 16:30 | disposition home or self-care (01) | DRG 75 ==
LOC: ER 09:54 → 5 NORTH 12:50
PROVIDERS: ADMIT Family Medicine; ATTEND Family Medicine
PROC: 009U3ZX Drainage of Spinal Canal, Percutaneous Approach, Diagnostic (ICD-10-PCS; principal; 2018-05-20)
PROC: B01B1ZZ Fluoroscopy of Spinal Cord using Low Osmolar Contrast (ICD-10-PCS; 2018-05-20)
DX: A87.9 Viral meningitis, unspecified (principal); N17.0 Acute kidney failure with tubular necrosis; G43.919 Migraine, unspecified, intractable, without status migrainosus; I25.10 Atherosclerotic heart disease of native coronary artery without angina pectoris; N18.9 Chronic kidney disease, unspecified; I12.9 Hypertensive chronic kidney disease with stage 1 through stage 4 chronic kidney disease, or unspecified chronic kidney disease; E11.59 Type 2 diabetes mellitus with other circulatory complications; Z83.3 Family history of diabetes mellitus; E11.22 Type 2 diabetes mellitus with diabetic chronic kidney disease; Z95.1 Presence of aortocoronary bypass graft; E86.0 Dehydration; K21.9 Gastro-esophageal reflux disease without esophagitis
CPT/HCPCS: 36415; 62270; 70450; 70551; 71046; 76770; 80048; 80053; 80069; 80076; 80307; 81001; 82945; 82962; 83605; 84157; 85007; 85025; 85610; 85651; 86141; 86481; 87040; 87071; 87075; 87116; 87529; 89051; 96361; 96372; 96374; J0692; J1100; J1815; J2405; J3010; J3030; J3370; J7030; J7040; Q0164; 99285-25; G0479